=== PATIENT | female | born 1975 | race Caucasian/White ===

== ENCOUNTER 2022-08-20 08:21 | Outpatient (CLI) | payer OTHER, SELFPAY ==
[2022-08-20 10:31] LABS: Albumin* 4.4 g/dL (3.3-5.0); Chloride* 106 mmol/L (96-114)
[2022-08-20 10:32] LABS: Potassium* 4.6 mmol/L (3.6-5.1); Sodium* 142 mmol/L (135-149)
[2022-08-20 10:34] LABS: Alkaline Phosphatase* 61 U/L (40-150); Aspartate Amino Transferase* 24 U/L (12-35); Bilirubin Total* 0.5 mg/dL (0.1-1.5); Blood Urea Nitrogen* 12 mg/dL (5-24); Carbon Dioxide* 29 mmol/L (20-32); Creatinine* 0.9 mg/dL (0.5-1.5); Estimated Glomerular Filt Rate 78 ml/min; Glucose* 108 mg/dL (60-115); Total Protein* 6.8 g/dL (6.0-8.3)
[2022-08-20 10:35] LABS: Alanine Aminotransferase* 30 U/L (4-35); Calcium* 10.3 mg/dL (8.4-10.6); HDL Cholesterol* 53 mg/dL (>=50); Triglycerides* 162 mg/dL (40-149)
[2022-08-21 18:56] LABS: Cholesterol* 231 mg/dL (90-199); LDL Cholesterol Calculated 146 mg/dL (<100)
== END 2022-08-20 08:22 | disposition home or self-care (01) ==
PROVIDERS: PCP Internal Medicine; Visit Provider Internal Medicine
DX: Z13.6 Encounter for screening for cardiovascular disorders (principal); Z13.9 Encounter for screening, unspecified
CPT/HCPCS: 80053; 80061

== ENCOUNTER 2023-09-16 08:27 | Outpatient (CLI) | payer OTHER, SELFPAY | END 2023-09-16 08:28 | disposition home or self-care (01) | PROVIDERS: PCP Internal Medicine; Visit Provider Internal Medicine | DX: R35.0 Frequency of micturition (principal); R53.1 Weakness | CPT/HCPCS: 80053; 84443; 87086; 87186 ==

== ENCOUNTER 2023-10-14 12:37 | Outpatient (CLI) | payer OTHER, SELFPAY ==
[2023-10-14] MEDS: PERFLUTREN LIPID MICROSPHERES 2 ML VIAL IV (13:25)
[2023-10-14 13:32] VITALS: BP 140/64; PULSE 114; RESP 18
--- NOTE | 2023-10-14 14:01 | P.STN_ITS ---
Stress Test Note Date Date Seen: 10/14/23 Date of test: 10/14/23 Providers Primary care provider: Chester Sharp Stress test physician: Sara Diaz Stress Test Note Stress test ordered: Stress Echo Indication for test: Dyspnea on exertion, fatigue Stress test medicine: Definity Results discussion: Resting EKG: Sinus rhythm, 95 beats per minute. Flipped T-waves V1 and V2. Resting blood pressure: 127/81. Stress test: Patient was exercise on the treadmill following standard Juan protocol. Patient requested to stop exercise at 5 minutes 2 seconds due to being significantly short of breath. This was equivalent with 7 Mets. She had a maximum heart rate of 143 beats per minute which was just suboptimal at 98% of her calculated target heart rate of 145. She had a maximum blood pressure of 145/80 with rate pressure product of 20,735. Patient had no arrhythmias, no de finitive ischemic change on this. She had slow return to baseline heart rate. Await echo images to couple this for a full formal diagnostic. Impression: Subjectively positive for dyspnea, poor exercise tolerance, no diagnostic EKG evidence of ischemia, overall suboptimal test potentially due to lack of achieving target heart rate. Follow up suggested: Await echo images, patient should recover it as far as her shortness of breath, had no chest pain. She will await the full test report from her primary provider. Do recommend continuing to work her up for dyspnea/dyspnea on exertion. Full echo could be considered, non exercise stress tests like a Lexiscan if there is still concern significant for cardiac ischemia.
== END 2023-10-14 12:38 | disposition home or self-care (01) ==
LOC: STRESS 12:37
PROVIDERS: PCP Internal Medicine; Visit Provider Family Medicine
DX: R06.09 Other forms of dyspnea (principal); R53.83 Other fatigue
CPT/HCPCS: 93016; 93325; 93351; Q9957

== ENCOUNTER 2023-11-06 08:38 | Outpatient (CLI) | payer OTHER, SELFPAY ==
--- NOTE | 2023-11-06 09:00 | CT_ITS ---
Patient: GARRETT HINOJOSA Facility:?[facility] Patient ID:?[id number] Site Patient ID:?[id number]. Site :?1975 Study:?CT-Chest PE W/ISOVUE 370 95CC-11/06/2023 9:09:19 AM Ordering Physician:YUE Final Report: INDICATION: Shortness of breath COMPARISON: 06/22/2014 TECHNIQUE: CT volumetric acquisition was performed of the thorax during intravenous infusion of 95 cc Isovue 370 nonionic intravenous contrast. Please note that all CT scans at this facility use dose modulation, iterative reconstruction, and/or weight-based dosing when appropriate to reduce radiation dose to as low as reasonably achievable. FINDINGS: The CT images are of acceptable quality and demonstrate normal uniform vascular enhancement within the pulmonary arteries. There are no suspicious filling defects which would indicate pulmonary thromboemboli. There is no evidence of pleural or pericardial fluid. The heart and thoracic aorta appear normal. There is no evidence of lymphadenopathy within the central mediastinum or within either axilla. On lung window settings, there is no evidence of pneumothorax. Dependent areas of atelectasis/scarring noted. IMPRESSION: No evidence of pulmonary thromboembolism. Please note that all CT scans at this facility use dose modulation, iterative reconstruction, and/or weight-based dosing when appropriate to reduce radiation dose to as low as reasonably achievable. Dictated by Anthnoy Lucas MD @ 11/06/2023 11:11:06 AM Signed by:?Anthony Lucas MD @11/06/2023 11:11:06 AM (Electronic Signature)
== END 2023-11-06 08:39 | disposition home or self-care (01) ==
LOC: CT 08:39
PROVIDERS: PCP Internal Medicine; Visit Provider Internal Medicine
DX: R06.02 Shortness of breath (principal)
CPT/HCPCS: 71275; Q9967

== ENCOUNTER 2023-12-04 19:41 | Outpatient (CLI) | payer OTHER, SELFPAY ==
--- OUTSIDE RECORDS SUMMARY | 2023-12-04 19:44 | XMS_ITS | Clinical Summary ---
Author Name Unknown Organization [facility] Address [address] [place] [address] Care Team Providers Care Profiling Machine Setup Operator Name Role Phone Unavailable Primary Care Provider Unavailabl e Source Comments Patient records contain information from all sites at [facility]. For routine questions regarding patient records, call [phone] during business hours, M-F 8:00 AM - 5:00 PM Central Time. Record requests for emergency care only can be directed to [phone] at any time.[facility] Immunizations Name Administration Dates Next Due influenza vaccine quad (FLUZ ONE/FLUARIX) (6 months and older)(PF) 06/12/2023 Social History Tobacco Use Types Packs/Day Years Used Date Smoking Tobacco: Never Assessed Nutrition Answer Date Recorded Nutrition: EVOO Fat Source Unknown 06/12 Nutrition: Servings of Fruits/Vegetables per Day Not on file 06/12/2023 Dental Answer Date Recorded Dental: Regular Dentist Unknown 06/12/20 23 Sex and Gender Information Value Date Recorded Sex Assigned at Not on file Gender Identity Not on file Sexual Orientation Not on file Plan of Treatment Health Maintenance Due Date Last Done Comments CT Colonography 1973 Cologuard 1975 Colonoscopy 1973 Colorectal Cancer Screening 1975 FIT 1973 Fasting Glucose for Diabetes Screening 1975 HIV Screening 1975 Hepatitis C Screening 1975 Lipid (Cholesterol) Screening 1973 Mammogram 1973 Hepatitis B Vaccines (1 of 3 - 19+ 3-dose series) 1992 Cervical Cancer Screening 09/19/2012 09/19/2009, 11/2007 Zoster Vaccines (1 of 2) 2023 COVID-19 Vaccine ( season) 2023 07/21/2021, 11/11/2020, 10/25/2020 Depression Screening (Annual PHQ-2) 08/18/2023 DTaP,Tdap,and Td Vaccines (4 - Td or Tdap) 03/22/2032 03/22/2022, 04/29/2016, 06/26/2009 Influenza Vaccine Completed 06/12/2023, , 07/07/2021, Additional history exists Pneumococcal vaccine (0-64 years) Aged Out No longer eligible based on patient's age to complete this topic Procedures Procedure Name Priority Date/Time Associated Diagnosis Comments PATHOLOGY CASINO DUTY MANAGER CYTOLOGY Routine 09/19/2009 2:22 PM MANAGER CONTRACTING from Last 3 Months or Most Recently Relevant to Health Maintenance Results * Pathology CASINO DUTY MANAGER Cytology (09/19/2009 2:22 PM MANAGER CONTRACTING) 09/19/2009 2:22 PM MANAGER CONTRACTING 09/19/2009 2:22 PM MANAGER CONTRACTING Narrative [facility] [place] - 09/19/2009 2:22 PM MANAGER CONTRACTING ??09/19/2009 Cytology Gynecological ?([id number]) ? Requested By: ??Chhaya aCmpbell M.D. ??[id number] ?DIAGNOSIS: ?? A. ??ThinPrep Pap Test Screen (Cervical/Endocervical HPV >= 30 years old): ?Satisfactory for evaluation. ?Partially obscuring inflammation. ?Negative for intraepithelial lesion or malignancy. ?HPV testing was performed by [employer] Hybrid [employer] and is negative for HPV types 16,18,31,33,35,39,45,51,52,56,58,59 and 68. ?? The HPV assay was performed in the Clinical Virology Laboratory at [facility]. ? Report electronically signed by PAOLA Acuña(ASCP) ?? 09/21/2009 14:41 Interpreted by: DANY Jacob (ASCP) ?? SPECIMEN DESCRIPTION: A. ??ThinPrep Pap Test Screen (Cervical/Endocervical HPV >= 30 years old): ??Received blood tinged specimen in ThinPrep vial. ? Procedure Note 11/12/2017 09/19/2009 Cytology Gynecological ([id number]) Requested By: Chhaya Campbell M.D. [id number] DIAGNOSIS: A. ThinPrep Pap Test Screen (Cervical/Endocervical HPV >= 30 years old): Satisfactory for evaluation. Partially obscuring inflammation. Negative for intraepithelial lesion or malignancy. HPV testing was performed by [employer] and is negative for HPV types 16,18,31,33,35,39,45,51,52,56,58,59 and 68. The HPV assay was performed in the Clinical Virology Laboratory at [facility]. Report electronically signed by PAOLA Acuña(ASCP) 09/21/2009 14:41 Interpreted by: DANY Jacob (ASCP) SPECIMEN DESCRIPTION: A. ThinPrep Pap Test Screen (Cervical/Endocervical HPV >= 30 years old): Received blood tinged specimen in ThinPrep vial. Chhaya Campbell M.D. LAB PAP COPATH ORDER [place] [address] from Last 3 Months or Most Recently Relevant to Health Maintenance [facility] [place] [address]
--- OUTSIDE RECORDS SUMMARY | 2023-12-04 19:44 | XMS_ITS | Encounter Summary ---
Author Name Unknown Organization [facility] Address [address] [place] [id number] Care Team Providers Care Dormitory Keeper Name Role Phone Cami Christopher MD Primary Care Provider [phone] Encounter Details Date Type Department Care Team (Late st Contact Info) Description 01/15/2022 Orders Only [facility] Centralized Scheduling [address] [place] [address] Gabriel Welsh MD [address] [place] [address] Encounter for laboratory testing for COVID-19 virus Social History Tobacco Use Types Packs/Day Years Used Date Smoking Tobacco: Never Alcohol Use Standard Drinks/Week Comments No 0 (1 standard drink = 0.6 oz pur e alcohol) Sex and Gender Information Value Date Recorded Sex Assigned at Not on file Gender Identity Not on file Sexual Orientation Not on file COVID-19 Exposure Response Date Recorded In the last 10 days, have yo u been in contact with someone who was confirmed or suspected to have Coronavirus/COVID-19? No / Unsure 01/15/2022 3:48 PM CDT documented as of this encounter Plan of Treatment Not on file documented as of this encounter Visit Diagnoses Diagnosis Encounter for laboratory testing for COVID-19 virus documented in this encounter Care Teams Dormitory Keeper Relationship Specialty Start Date End Date Cami Christopher MD [facility] [place] [address] [place] [address] PCP - General 11/23/11 documented as of this encounter
--- OUTSIDE RECORDS SUMMARY | 2023-12-04 19:44 | XMS_ITS | Referral Summary ---
Author Name Unknown Organization [facility] Address [address] [place] [address] Care Team Providers Care V Block Saw Operator Name Role Phone Cami Christopher MD Primary Care Provider Allergies Active Allergy Reactions Criticality Noted Date Comments Cephalosporins Hives 04/25/2009 Doxycycline Nausea and Vomiting 10/04/2006 Erythromycin Base Cramps 04/07/2005 Medical Adhesive Remover Rash Low 01/23/2022 Morphine Nausea and Vomiting 04/07/2005 Morphine And Related Hives Low 04/07/2005 Other Drug Allergy (See Comments) Rash Low 01/24/2022 Vicryl sutures Penicillins Rash 04/07/2005 Sulfa Antibiotics Rash 04/07/2005 Tetracycline Nausea and Vomiting 01/19/2022 Trolamine (Triethanolamine) Rash Low 01/19/2022 Medications Medication Sig Dispensed Refills Start Date End Date Status Pregabalin (LYRICA PO) Take 3,330 mg by mouth daily Active ARIPiprazole (ABILIFY) 5 MG tablet Take 5 mg by mouth daily Active lamoTRIgine (LAMICTAL) 100 MG tablet Take 100 mg by mouth daily Active levomilnacipran (FETZIMA ER) 120 MG 24 hr capsule Take 120 mg by mouth daily Active temazepam (RESTORIL) 15 MG capsule Take 15 mg by mouth nightly as needed for sleep Active senna-docusate (SENOKOT-S/PERICOLAC E) 8.6-50 MG tabletIndications:St atus post bilateral breast reduction Take 1-2 tablets by mouth 2 times daily 20 tablet 01/24/2022 Active oxyCODONE (ROXICODONE) 5 MG tabletIndications:St atus post bilateral breast reduction Take 1-2 tablets (5-10 mg) by mouth every 4 hours as needed for moderate to severe pain 20 tablet 01/24/2022 Active Active Problems Problem Noted Date Diagnosed Date Cervicalgia 04/07/2005 Sprain of neck 04/07/2005 Resolved Problems Problem Noted Date Diagnosed Date Resolved Date Knee pain 11/05/2012 05/03/2013 Social History Tobacco Use Types Packs/Day Years Used Date Smoking Tobacco: Never Smokeless Tobacco: Never Alcohol Use Standard Drinks/Week Comments Yes 0 (1 standard drink = 0.6 oz pur e alcohol) rare Adolescent Education Answer Date Record ed Getting School Help Needed Not on file 06/03 Sex and Gender Information Value Date Recorded Sex Assigned at Not on file Gender Identity Not on file Sexual Orientation Not on file Last Filed Vital Signs Vital Sign Reading Time Taken Comments Blood Pressure 108/60 01/24/2022 2:12 PM CDT Pulse 92 01/24/2022 2:12 PM CDT Temperature 36.8 ??C (98.2 ??F) 01/24/2022 2:12 PM CD T Respiratory Rate 12 01/24/2022 2:12 PM CDT Oxygen Saturation 97% 01/24/2022 2:12 PM CDT Inhaled Oxygen Concentration - - Weight 106.5 kg (234 lb 11.2 oz) 01/24/2022 5:47 AM CDT Height 170.2 cm (5' 7) 01/24/2022 5:47 AM CDT Body Mass Index 36.76 01/24/2022 5:47 AM CDT Plan of Treatment Not on file Procedures Procedure Name Priority Date/Time Associated Diagnosis Comments COMPREHENSIVE METABOLIC PANEL STAT 09/10/2010 8:20 PM PRIVATE BRANCH EXCHANGE SERVICE ADVISOR from Last 3 Months or Most Recently Relevant to Health Maintenance Results * (ABNORMAL) Comprehensive metabolic panel (09/10/2010 8:20 PM PRIVATE BRANCH EXCHANGE SERVICE ADVISOR) Sodium 137 133 - 144 mmol/L [facility] Potassium 3.8 3.4 - 5.3 mmol/L [facility] Chloride 102 94 - 109 mmol/L [facility] Carbon Dioxide 25 20 - 32 mmol/L [facility] Glucose 114(H) 60 - 99 mg/dL [facility] Urea Nitrogen 10 5 - 24 mg/dL [facility] Creatinine 0.79 0.52 - 1.04 mg/dL [facility] Comment:New IDMS-traceable c alibration beginning 12/17/07 GFR Estimate 82 >60 mL/min/1.7 m2 [facility] GFR Estimate If Black >90 >60 mL/min/1.7 m2 [facility] Calcium 8.6 8.5 - 10.4 mg/dL [facility] AST 26 0 - 45 U/L [facility] Protein Total 7.3 6.8 - 8.8 g/dL [facility] Anion Gap 9 6 - 17 mmol/L [facility] Albumin 4.6 3.9 - 5.1 g/dL [facility] ALT 38 0 - 50 U/L [facility] Alkaline Phosphatase 50 40 - 150 U/L [facility] Bilirubin Total 0.2 0.2 - 1.3 mg/dL [facility] 09/10/2010 8:20 PM PRIVATE BRANCH EXCHANGE SERVICE ADVISOR 09/10/2010 8:28 PM PRIVATE BRANCH EXCHANGE SERVICE ADVISOR Zara Vargas MD LAB - BLOOD ORDERABL ES MISYS from Last 3 Months or Most Recently Relevant to Health Maintenance Care Teams V Block Saw Operator Relationship Specialty Start Date End Date Cami Christopher MD [facility] [address] [place] [address] PCP - General 11/23/11
--- OUTSIDE RECORDS SUMMARY | 2023-12-04 19:44 | XMS_ITS | Continuity of Care Document ---
Author Name Unknown Organization [facility] Address [address] [place] [address] Phone Care Team Providers Care Legal File Clerk Name Role Phone Nandini Campos MD Unavailable Unavailable Results Test Name Date and Time Measure Units Reference Range Abnormal Flag Status Comments Panel Description: KRISSY Dir+KRISSY IFA Final KRISSY Direct 18:06:00 Negative Negative Final Antinuclear Antibodies, IFA 18:06:00 Negative Final Negative <1:80 Borderline 1:80 Positive >1:80 Panel Description: Rheumatoid Arthritis Profile Final RA Latex Turbid. 18:06:00 10.5 IU/mL 0.0-13.9 Final CCP Antibodies IgG/IgA 18:06:00 3 units 0-19 Final Negative <20 Weak positive 20 - 39 Moderate positive 40 - 59 Strong positive >59 Panel Description: TSH Final TSH 18:06:00 1.340 uIU/mL 0.450-4.500 Final Panel Description: Vitamin D, 25-Hydroxy Final Vitamin D, 25-Hydroxy 18:06:00 31.9 ng/mL 30.0-100.0 Final Vitamin D deficiency has been defined by the Alliance ofMedicine and an Endocrine Society practice guideline as alevel of serum 25-OH vitamin D less than 20 ng/mL (1,2).The Endocrine Society went on to further define vitamin Dinsufficiency as a level between 21 and 29 ng/mL (2).1. IOM (Alliance of Medicine). 2010. Dietary reference intakes for calcium and D. Gutierrez [place]: The National Academies Press.2. Ayden MF, April NC, Yady DESHPANDE, et al. Evaluation, treatment, and prevention of vitamin D deficiency: an Endocrine Society clinical practice guideline. JCEM. 2010; 96(8):2116-30. Panel Description: CBC Final WBC 16:46:00 8.6 K/uL 3.5-10.8 Final Lymphocyte% 16:46:00 34.2 % 15.1-43.0 Final Mid% 16:46:00 8.0 % 1.0-18.0 Final Gran% 012 16:46:00 57.8 % 45.0-76.0 Final Lymphocyte # 012 16:46:00 2.9 K/uL 0.9-5.2 Final Mid # 012 16:46:00 0.7 K/uL 0.1-2.0 Final Gran # 012 16:46:00 5.0 K/uL 1.4-9.1 Final RBC 16:46:00 4.83 M/uL 3.80-5.20 Final Hemoglobin 16:46:00 13.7 g/dL 11.5-16.0 Final Hematocrit 16:46:00 41.9 % 36.0-49.0 Final MCV 16:46:00 87 fL 81-100 Final MCH 16:46:00 28 pg 27-35 Final MCHC 16:46:00 32.7 g/dL 31.0-37.5 Final MPV 16:46:00 9.4 fL 7.0-10.4 Final Platelet Count 16:46:00 316 K/uL 130-400 Final Panel Description: ESR Final ESR 16:55:00 8 mm/hr 0-25 Final Panel Description: DMARD Final AST 16:46:00 17 U/L 5-34 Final ALT 16:46:00 35 IU/L 5-35 Final Creatinine 16:46:00 0.9 mg/dL 0.5-1.3 Final ALB 16:46:00 4.3 g/dL 3.5-5.3 Final GFR 16:46:00 74.5 mL/min/1 .73 m2 Final If patient is -Chilean multiply result by 1.210 Panel Description: CRP Final CRP 16:46:00 0.75 MG/DL 0.00-0.60 H Final Advance Directives Directive Yes / No Effective Date File Name No Information Encounters Encounter Description Practice Location Reason(s) For Visit Diagnoses Date Provider Providers Copied on Encounter [facility], [address], [place], [address], tel:[phone] No Information 2 Andres Delatorre. [facility] [address], [place], [address], [place]. tel:[phone] Family History Family Member Type Diagnosis Age At Onset No Information Payers Payer name Insurance type Covered constitution party ID Authoriza tion(s) No Information Social History Type Description Quantity Date Captured Comments Sex Female Smoking Status No Information Chief Complaint And Reason For Visit No Information Reason For Referral Reason For Referral No Information History Of Present Illness Encounter Date Complaint History Of Prese nt Illness No Information Functional Status Date Functional Assessmen t No Information Instructions Date Instruction Additional Infor mation No Information Assessments Type Assessment Date No Information Patient Care Teams Name Effective Dates (start - stop) Status Members No Information
--- OUTSIDE RECORDS SUMMARY | 2023-12-04 19:44 | XMS_ITS | Clinical Summary ---
Author Name Unknown Organization [facility] Address [place], [place] [address] Care Team Providers Care Leasing Machine Tender Name Role Phone Chester Reyes MD Primary Care Provider Allergies Active Allergy Reactions Criticality Noted Date Comments Cephalosporins Hives 12/21/2008 Yesterday at [facility] - rec'd [facility]. No SOB/respiratory effects Codeine Rash Doxycycline Vomiting 06/15/2007 Erythromycin GI Upset 06/15/2007 Severe stomach cramping Haptens - [employer] Rash 02/21/2023 Penicillins Rash Sulfa (Sulfonamide Antibiotics) Rash Medications Medication Sig Dispensed Refills Start Date End Date Status VITAMIN TAB take 1 tablet by oral route once daily 0 02/23/2008 Active Active Problems Problem Noted Date Diagnosed Date Muscle spasm of back 04/20/2015 Diabetes in 12/23/2008 Rh negative status during 12/22/2008 Cholelithiasis 12/22/2008 RUQ abdominal pain 12/21/2008 Migraine, unspecified, witho ut mention of intractable migraine without mention of status migrainosus 11/04/2006 Endometriosis, site unspecified 11/04/2006 Depressive disorder, not elsewhere classified Myalgia and myositis, unspecified Resolved Problems Problem Noted Date Diagnosed Date Resolved Date Breech presentation 12/22/2008 04/20/20 15 Supervision of normal 12/22/2008 04/20/2015 Encounters Date Type Department Care Team Description 10/14/2023 1:00 PM POWER EQUIPMENT TECHNOLOGY INSTRUCTOR Orders Only [facility] [address] [place] [address] 2 scans: (2-Ord) ECHO STRESS EXERCISE W CONTRAST W COLOR ([id number]) 10/10/2023 Telephone [facility] [address] [place] [address] Chester Reyes MD Prior Authorization from Last 3 Months Immunizations Name Administration Dates Next Due Influenza, IIV3 (Age >=3 years) 06/13/2008,09/02 Td (Age >=7 Years) 04/16/1999 Tdap 03/22/2022 Family History Medical History Relation Name Comments Hyperlipidemia Mother Relation Name Status Comments Mother Social History Tobacco Use Types Packs/Day Years Used Date Smoking Tobacco: Never Smokeless Tobacco: Never Tobacco Cessation:Counseling Given: Yes Alcohol Use Standard Drinks/Week Comments Yes 0 (1 standard drink = 0.6 oz pur e alcohol) quit for Sex and Gender Information Value Date Recorded Sex Assigned at Not on file Gender Identity Not on file Sexual Orientation Not on file Obstetrics History Para Term AB IAB SAB Ectopic Multiple Livin g Live Births 2 Date Outcome GA Total Labor Labor/2nd/3rd Weight Sex Delivery Anes PTL Ksenia A1 A5 Name Cl in Comments:System Agribots matty. Please review and update details. Comments:System Agribots matty. Please review and update details. Last Filed Vital Signs Vital Sign Reading Time Taken Comments Blood Pressure 120/77 02/21/2023 9:49 AM CDT Pulse 95 02/21/2023 9:49 AM CDT Temperature 36.5 ??C (97.7 ??F) 02/21/2023 9:49 AM CD T Respiratory Rate 16 02/21/2023 9:49 AM CDT Oxygen Saturation 95% 02/21/2023 9:49 AM CDT Inhaled Oxygen Concentration - - Weight 119.3 kg (263 lb) 02/21/2023 9:49 AM CDT Height 170.2 cm (5' 7) 03/22/2022 1:40 PM CDT Body Mass Index 41.19 03/22/2022 1:40 PM CDT Plan of Treatment Health Maintenance Due Date Last Done Comments Depression screening for age 12+ 1985 HIV for age 15-65 1988 BMI (ht and wt on same day) for age 18+ 1991 Hepatitis C screening for age 18-79 1991 Pap test for age 21-65 12/21/2016 4, 12/21/2013, 10/02/2010, Additional history exists Colonoscopy through age 75 2018 Lipids for age 45-75 2018 Mammogram for age 45-75 2018 Zoster (shingles) series for age 50+ (1 of 2) 2023 COVID-19 vaccine series ( - 2022-24 season) 2023 07/21/2021, 11/11/2020, 10/25/2020 Influenza for age 50-64 04/18/2024 06/13/2008, 09/02 Tetanus booster 03/22/2032 03/22/2022, 04/16/1999 Tdap Completed 03/22/2022 Pneumococcal series for age 6-64 Aged Out No longer eligible based on patient's age to complete this topic Procedures Procedure Name Priority Date/Time Associated Diagnosis Comments ECHO STRESS EXERCISE W CONTRAST W COLOR Routine 10/14/2023 1:34 PM POWER EQUIPMENT TECHNOLOGY INSTRUCTOR Other fatigue GYNECOLOGICAL PANEL Timed 12/21/2013 8 :48 PM CDT from Last 3 Months or Most Recently Relevant to Health Maintenance Results * ECHO STRESS EXERCISE W CONTRAST W COLOR (10/14/2023 1:34 PM POWER EQUIPMENT TECHNOLOGY INSTRUCTOR) EJECTION FRACTION 55 - 60% Anatomical Region Laterality Modality Ultrasound 10/14/2023 1:02 PM POWER EQUIPMENT TECHNOLOGY INSTRUCTOR Narrative 10/14/2023 2:03 PM POWER EQUIPMENT TECHNOLOGY INSTRUCTOR STRESS ECHOCARDIOGRAM PATRICIA SANCHEZ ?Accession#: ?? [id number] : ?1975 48 years Study Date: ?? 10/14/2023 1:02:57 PM Gender: F ? BP: ? 127/81 mmHg Height: 170.00 cm ? BSA: ?2.32 m? ? ? Weight: 125.00 kg ? Tech: ? MHR ?Referring MD: CHESTER REYES Site: ? [facility] Reading Location: MOBILE OP Patient Location: Outpatient. Procedure: Stress Echo and Color Doppler. Juan stress echo. Indication for study: fatigue Cardiac Rhythm: Regular.Study quality: Technically limited. Imaging limitations: This study was subject to imaging limitations due to body habitus and a prominent lung artifact. Final Impressions: 1. Post stress, normal left ventricular size, normal global systolic function with an estimated EF of 70 to 75%. 2. Submaximum stress test with 83.8% of age predicted maximum heart rate achieved. 3. Technically limited exam. 4. Negative stress echo for ischemia. 5. Fair exercise duration and workload. 6. During stress exam the patient developed shortness of breath. 7. See separate report for EKG interpretation. Stress Data: ? HR ?Systolic Diastolic Time Duration Minutes Seconds Baseline 88 bpm ?127 ?81 mmHg ?5 :2 ?Peak ? 142 bpm ?? 140 ?64 mmHg Max Pred HR ?169 % of Max ? 84% Double Product [id number] Echo Findings:This is a negative stress echo test for ischemia. Post stress, normal left ventricular size, normal global systolic function with an estimated EF of 70 to 75%. LV regional wall motion abnormalities are not present post exercise. EKG:See separate report for EKG interpretation. Exam Protocol:The patient presents with no significant symptoms at baseline. The patient exercised 5 min 2 sec to stage II according to the Juan stress echo protocol. Test terminated due to shortness of breath. 7.0 METS were achieved. The patient achieved a heart rate of 142 bpm which is 83.8% of maximum predicted heart rate. Maximum systolic blood pressure was 140 [place] [id number]. Submaximum stress test with 83.8% of age predicted maximum heart rate achieved. The blood pressure response was flat. Exercise duration and workload were fair. The patient developed shortness of breath during the stress exam. Symptoms resolved with rest. Intermediate (1-3% annual mortality rate) non invasive risk stratification. Chamber Sizes and Function Normal left ventricular size, normal global systolic function with an estimated EF of 55 - 60%. LV regional wall motion abnormalities are not present. MEASUREMENTS AND CALCULATIONS 2-D Measurements and LV Function: Ao Sinus 3.5 cm LVOT diameter 2.5 cm LA ? 3.6 cm HR ?88 bpm . This study was interpreted by an [facility] accredited facility. CC: [facility] (formerly [facility]) [facility]. ??Final ?? Procedure Note Cristobal Bennett MD - 10/14/2023 STRESS ECHOCARDIOGRAM PATRICIA SANCHEZ : 1975 48 years Study Date: 10/14/2023 1:02:57 PM Gender: F BP: 127/81 mmHg Height: 170.00 cm BSA: 2.32 m? ? ? Weight: 125.00 kg Tech: [facility] Referring MD: CHESTER REYES Site: [facility] Reading Location: MOBILE OP Patient Location: Outpatient. Procedure: Stress Echo and Color Doppler. Juan stress echo. Indication for study: fatigue Cardiac Rhythm: Regular.Study quality: Technically limited. Imaging limitations: This study was subject to imaging limitations due tobody habitus and a prominent lung artifact. Final Impressions: 1. Post stress, normal left ventricular size, normal global systolicfunction with an estimated EF of 70 to 75%. 2. Submaximum stress test with 83.8% of age predicted maximum heart rateachieved. 3. Technically limited exam. 4. Negative stress echo for ischemia. 5. Fair exercise duration and workload. 6. During stress exam the patient developed shortness of breath. 7. See separate report for EKG interpretation. Stress Data: HR Systolic Diastolic Time Duration Minutes Seconds Baseline 88 bpm 127 81 mmHg 5 :2 Peak 142 bpm 140 64 mmHg Max Pred HR 169 % of Max 84% Double Product [id number] Echo Findings:This is a negative stress echo test for ischemia. Poststress, normal left ventricular size, normal global systolic function withan estimated EF of 70 to 75%. LV regional wall motion abnormalities arenot present post exercise. EKG:See separate report for EKG interpretation. Exam Protocol:The patient presents with no significant symptoms atbaseline. The patient exercised 5 min 2 sec to stage II according to [facility] stress echo protocol. Test terminated due to shortness of breath.7.0 METS were achieved. The patient achieved a heart rate of 142 bpm whichis 83.8% of maximum predicted heart rate. Maximum systolic blood pressurewas 140 [place] [address]. Submaximum stress testwith 83.8% of age predicted maximum heart rate achieved. The bloodpressure response was flat. Exercise duration and workload were fair. Thepatient developed shortness of breath during the stress exam. Symptomsresolved with rest. Intermediate (1-3% annual mortality rate) non invasive risk stratification. Chamber Sizes and Function Normal left ventricular size, normal global systolic function with anestimated EF of 55 - 60%. LV regional wall motion abnormalities are notpresent. MEASUREMENTS AND CALCULATIONS 2-D Measurements and LV Function: Ao Sinus 3.5 cm LVOT diameter 2.5 cm LA 3.6 cm HR 88 bpm . This study was interpreted by an [facility] accredited facility. CC: [facility] (med records) [facility]. Final Chester Reyes MD ECHO ORD * GYNECOLOGICAL PANEL (12/21/2013 8:48 PM CDT) CYTOLOGY CYTOPATHOLOGY REPORT [facility] Status: Final Status ?[id number] CLINICAL INFORMATION Last Date of LMP ? :12/17/13 Last Pap Date ?:2010 Last Pap Result ?:WNL ABN [place]/Bx Past 5 YRS :None HPV Request ?:HPV and PAP. See Separate Report. SPECIMEN SOURCE ?:Cervical/vagina l ThinPrep Vial, screening SPECIMEN ADEQUACY ?:Satisfactory for evaluation Endocervical component ? present. INTERPRETATION/RES ULT Negative for intraepithelial lesion or malignancy (NIL) Cytology 1st Screener ??:bhargavi Signed by ?:bhargavi This specimen was screened by the FDA approved ThinPrep Imaging System and manually reviewed. NOTE: ??The Pap test is a screening technique, not a diagnostic procedure. ??It is used ??primarily to screen for squamous cancers and precursor lesions. ??Published studies have shown that it is subject to both false negative and false positive results. ??The pap test should not be used as the sole means to diagnose or exclude pre-malignant and malignant lesions. COLLECTED:12/21/13 ? ACCESSIONED: ??12/22/13 ?? SIGNED: ??12/27/13 [facility] PAP [place] CODE NIL [facility] 12/21/2013 8:48 PM CDT 12/21/2013 8:47 PM CDT Cami Christopher MD PATHOLOGY/CYTOLOGY [facility] [place] ZIP [id number] [address] [place] [address] from Last 3 Months or Most Recently Relevant to Health Maintenance Advance Directives * Full Code (Latest Code Status on File) Date Activated Date Inactivated Comments 12/21/2008 8:35 PM 12/25/2008 4:48 PM Care Teams Leasing Machine Tender Relationship Specialty Start Date End Date Chester Reyes MD [address] [place] [id number] PCP - General Internal Medicine 11/13/23
--- OUTSIDE RECORDS SUMMARY | 2023-12-04 19:44 | XMS_ITS | Referral Summary ---
Author Name Unknown Organization [facility] Address [address] [place] [address] Care Team Providers Care Secondary School Teacher Name Role Phone Unavailable Primary Care Provider Unavailabl e Source Comments Patient records contain information from all sites at [facility]. For routine questions regarding patient records, call [phone] during business hours, M-F 8:00 AM - 5:00 PM Central Time. Record requests for emergency care only can be directed to [phone] at any time.[facility] Immunizations Name Administration Dates Next Due influenza [...] Orientation Not on file Plan of Treatment Not on file Procedures Procedure Name Priority Date/Time Associated Diagnosis Comments PATHOLOGY FORGE HEATER CYTOLOGY Routine 09/19/2009 2:22 PM CLINICAL ATHLETIC INSTRUCTOR from Last 3 Months or Most Recently Relevant to Health Maintenance Results * Pathology FORGE HEATER Cytology (09/19/2009 2:22 PM CLINICAL ATHLETIC INSTRUCTOR) 09/19/2009 2:22 PM CLINICAL ATHLETIC INSTRUCTOR 09/19/2009 2:22 PM CLINICAL ATHLETIC INSTRUCTOR Narrative [facility] - 09/19/2009 2:22 PM CLINICAL ATHLETIC INSTRUCTOR ??09/19/2009 Cytology Gynecological ?([id number]) ? Requested By: ??Chhaya Campbell M.D. ??[id number] ?DIAGNOSIS: ?? A. ??ThinPrep Pap Test Screen (Cervical/Endocervical HPV >= 30 years old): ?Satisfactory for evaluation. ?Partially obscuring inflammation. ?Negative for intraepithelial lesion or malignancy. ?HPV testing was performed by Digene Hybrid Capture II and is negative for HPV types 16,18,31,33,35,39,45,51,52,56,58,59 and 68. ?? The HPV assay was performed in the Clinical Virology Laboratory at [facility]. ? Report electronically signed by PAOLA Acuña(ASCP) ?? 09/21/2009 14:41 Interpreted by: DANY Jacob (ASCP) ?? SPECIMEN DESCRIPTION: A. ??ThinPrep Pap Test Screen (Cervical/Endocervical HPV >= 30 years old): ??Received blood tinged specimen in ThinPrep vial. ? Procedure Note 11/12/2017 09/19/2009 Cytology Gynecological ([id number]) Requested By: Chhaya Campbell M.D. [id number] DIAGNOSIS: A. ThinPrep Pap Test Screen (Cervical/Endocervical HPV >= 30 years old): Satisfactory for evaluation. Partially obscuring inflammation. Negative for intraepithelial lesion or malignancy. HPV testing was performed by Digene Hybrid Capture II and is negative for HPV types 16,18,31,33,35,39,45,51,52,56,58,59 and 68. The HPV assay was performed in the Clinical Virology Laboratory at [facility]. Report electronically signed by PAOLA Acuña(ASCP) 09/21/2009 14:41 Interpreted by: DANY Jacob (ASC) SPECIMEN DESCRIPTION: A. ThinPrep Pap Test Screen (Cervical/Endocervical HPV >= 30 years old): Received blood tinged specimen in ThinPrep vial. Chhaya Campbell M.D. LAB PAP COPATH ORDER [facility] [address] [place] [address], [facility] from Last 3 Months or Most Recently Relevant to Health Maintenance
--- OUTSIDE RECORDS SUMMARY | 2023-12-04 19:44 | XMS_ITS | Clinical Summary ---
Author Name Unknown Organization [facility] Address [address] [place] [address] Care Team Providers Care Apartment Rental Agent Name Role Phone Cami Christopher MD Primary [...] 01/24/2022 5:47 AM CDT Plan of Treatment Health Maintenance Due Date Last Done Comments ADVANCE CARE PLANNING 1975 ANNUAL REVIEW OF HM ORDERS 1975 CT COLONOGRAPHY 1975 FIT 1975 FLEX SIG 1975 MAMMO SCREENING 1975 YEARLY PREVENTIVE VISIT 1975 sDNA (Cologuard) 1975 COLONOSCOPY 1983 COLORECTAL CANCER SCREENING 1983 HIV SCREENING 1988 HEPATITIS C SCREENING 1991 HEPATITIS B IMMUNIZATION (1 of 3 - 19+ 3-dose series) 1992 PAP 1994 LIPID 2013 GLUCOSE 09/10/2013 09/10/2010, 08/2 11/2008, 11/15/2007, Additional history exists ZOSTER IMMUNIZATION (1 of 2) 2023 COVID-19 Vaccine (4 - 2022-24 season) 2023 07/21/2021, 11/11/2020, 10/25/2020 INFLUENZA VACCINE (#1) 2023 , 06/22/2020, 06/30/2019, Additional history exists PHQ-2 (once per calendar year) 2023 DTAP/TDAP/TD IMMUNIZATION (4 - Td or Tdap) 04/29/2026 04/29/2016, 06/26/2009, 06/26/2009, Additional history exists HPV IMMUNIZATION Aged Out No longer e ligible based on patient's age to complete this topic IPV IMMUNIZATION Aged Out No longer e ligible based on patient's age to complete this topic MENINGITIS IMMUNIZATION Aged Out No l onger eligible based on patient's age to complete this topic Pneumococcal Vaccine: Pediatrics (0 to 5 Years) and At-Risk Patients (6 to 64 Years) Aged Out No longer eligible based on patient's age to complete this topic RSV MONOCLONAL ANTIBODY Aged Out No l onger eligible based on patient's age to complete this topic Procedures Procedure Name Priority Date/Time Associated Diagnosis Comments COMPREHENSIVE METABOLIC PANEL STAT 09/10/2010 8:20 PM NEWS INTERNSHIP from Last 3 Months or Most Recently Relevant to Health Maintenance Results * (ABNORMAL) Comprehensive metabolic panel (09/10/2010 8:20 PM [employer]) Sodium 137 133 - 144 mmol/L MISYS [...] - 1.3 mg/dL MISYS 09/10/2010 8:20 PM [employer] 09/10/2010 8:28 PM [employer] Zara Vargas MD LAB - BLOOD ORDERABL ES MISYS from Last 3 Months or Most Recently Relevant to Health Maintenance Care Teams Apartment Rental Agent Relationship Specialty Start Date End Date Cami Christopher MD [facility] [address] [place] [address] PCP - General 11/23/11
--- OUTSIDE RECORDS SUMMARY | 2023-12-04 19:44 | XMS_ITS ---
Author Name Unknown Organization [facility] Address [address] [place] [address] Care Team Providers Care Marble And Granite Polisher Name Role Phone Unavailable Unavailable Unavailable Surgery Details Not on file Complications Check Surgery Details section. Procedure Estimated Blood Loss Check Surgery Details section. Procedure Findings Check Surgery Details section. Procedure Specimens Taken Check Surgery Details section.
--- OUTSIDE RECORDS SUMMARY | 2023-12-04 19:44 | XMS_ITS | Continuity of Care Document ---
Author Name Unknown Organization [facility] Address [address] [address] [place] [address] Phone Care Team Providers Care Budget Officer Name Role Phone Hope GODWIN, Shanon Unavailable Unavailable Allergies, Adverse Reactions, Alerts Substance Reaction Status Criticality doxycycline Nausea/vomiting Active No Informati on codeine Rash Active No Information morphine Vomiting Active No Information trolamine salicylate Rash Active No Info rmation adhesive Rash Active No Information tetracycline Vomiting Active No Information Cephalosporins Rash Active No Informatio n erythromycin base Abdominal cramping Active No I nformation Sulfa (Sulfonamide Antibiotics) Rash Active No Information PENICILLIN Rash Active No Information Medications Medication Instructions Dosage Effective Dates (start - stop) Status Comments dicyclomine 10 mg capsule take 1 capsule by oral route 4 times every day as needed 10 MG - Active ZOFRAN (unknown strength) take 1 Tablet by oral route every6- 8 hours as needed Not Available - Active Fetzima 120 mg capsule,extended release take 1 capsule by oral route every day at approximately the same time each day 120 MG - Active Procedures Procedure Date Virtual Visit E&m Estab Mod-hi 25-39 Min FibroScan Offic/outpt E&m Estab Mod-hi 2 Routine Serum Collection Ag-immunoassay; Hep B Surface 0 Hepatitis B Surface Antibody Hep B Core Antibody Hepatitis C Antibody; Iron Iron Binding Capacity Colonoscopy Flex; W/bx 1/mx Level Iv-surg Path Gross/micro 20 Offic/outpt E&m Estab Mod-hi 2 20 Routine Serum Collection Gg; Iga, Igd, Igg, Igm, Ea Hepatic Function Panel Lipase Ugi Endo; Dx W/wo Collec Specm 09 Init Inpt Cons New/est Mod-hi 9 Advance Directives Directive Yes / No Effective Date File Name No Information Encounters Encounter Description Practice Location Reason(s) For Visit Diagnoses Date Provider Providers Copied on Encounter Virtual Visit E&m Estab Mod-hi 25-39 Min [facility], [address] [address], [place], [place], [id number], [place] tel:[phone] [facility] GI Symptoms or Concerns (chief complaint) NAFLD (nonalcoholic fatty liver disease) 0 Hope GODWIN [facility]. [address] [facility], [facility] [address], [place], [place], [address] , [place]. tel:[phone] Referring Provider: Referral Self, USE FOR SELF REFERRALS. [facility], [address] [address], [facility] [place], [address], [place] tel:[phone] [facility] Fatty (change of) liver, not elsewhere classified 0 Keith Hamlin. [address] [facility], [address], [place], [place], [address] , [place]. tel:[phone] Referring Provider: Referral Self, USE FOR SELF REFERRALS. Offic/outpt E&m Estab Mod-hi 2 [facility], [address] [address], [place], [address], [place] tel:[phone] [facility] Comment (chief complaint) Epigastric painNauseaFatty liverAbnormal LFTsDietary counseling and surveillanceElev ated blood-pressure reading, w/o diagnosis of htn 0 Keith Hamlin. [address] [facility], [facility] [address], [facility] [place], [address] , [place]. [phone] Referring Provider: Blane FERNANDEZ, [address] [place], [address]. tel:[phone] [facility], [address] [address], [place], [address], [place] tel:[phone] [facility] Hemorrhoids, externalDiarrhea , unspecifiedUnspe cified abdominal painDiarrhea, unspecifiedUnspe cified abdominal pain 0 Keith Hamlin. [address] [facility], [facility] [address], [place], [address] , [place]. tel:[phone] Referring Provider: Referral Self, USE FOR SELF REFERRALS. [facility], [address] [address], [place], [address], [place] tel:[phone] [facility] No Information 0 Lin Harvey. [address] [facility], [facility] [address], [facility] [place], [address] , [place]. tel:[phone] Offic/outpt E&m Estab Mod-hi 2 [facility], [address] [address], [place], [address], [place] tel:[phone] [facility] GI Symptoms or Concerns (chief complaint) Nausea and vomiting, intractability of vomiting not specified, unspecified vomiting typeChronic diarrheaBright red blood per rectumEpigastric pain 0 Keith Hamlin. [address] [facility], [facility] [address], [facility] [place], [address] , [place]. [phone] Referring Provider: Beau Pereyra MD, [address] [facility] [place], [address]. tel:[phone] [facility], [address] [address], [place], [address], [place] tel:[phone] [facility] No Information 8[address] Manoj Cruz. [address] [facility], [facility] [address], [place], [address] , [place]. tel:[phone] Referring Provider: Anthony Aranda MD I, [address] [facility] [address], [place], [address] . tel:[phone] Init Inpt Cons New/est Mod-hi [facility], [address] [address], [place], [id number], [place] tel:[phone] [facility] No Information [address] ADMITTING INTERVIEWER Nohemy. [address] [facility], [facility] [address], [place], [address] , [place]. [phone] Referring Provider: Augusto Gates MD, [address] [place], [address]. tel:[phone] Family History Family Member Type Diagnosis Age At Onset Father Problem (finding) gallbladder disease Son Problem (finding) Alive and well Brother Problem (finding) Non-Hodgkin's lymphoma Mother Problem (finding) Alive and well Brother Problem (finding) Alive and well Immunizations Vaccine Date Status Comments Fluzone Quad 6mo or older administered Note: [facility] bi-direct ional interface ; Source: Other Registry Fluzone Quad 6mo or older administered Note: [facility] bi-direct ional interface ; Source: Other Registry Fluzone Quad 6mo or older administered Note: [facility] bi-direct ional interface ; Source: Other Registry Fluzone Quad 6mo or older administered Note: [facility] bi-direct ional interface ; Source: Other Registry tetanus toxoid, reduced diphtheria toxoid, and acellular pertussis vaccine, adsorbed administered Note: [facility] b i-directional interface ; Source: Other Registry Influenza, seasonal, injecta ble, preservative free administered Note: [facility] bi-direct ional interface ; Source: Other Registry influenza virus vaccine, lux e, attenuated, for intranasal use administered Note: M[facility] C bi- directional interface ; Source: Other Registry influenza virus vaccine, lux e, attenuated, for intranasal use administered Note: MII C bi- directional interface ; Source: Other Registry Influenza, seasonal, injecta ble, preservative free administered Note: [facility] bi-direct ional interface ; Source: Other Registry Influenza, seasonal, injectable administe red Note: [facility] bi- directional interface ; Source: Other Registry tetanus toxoid, reduced diphtheria toxoid, and acellular pertussis vaccine, adsorbed administered Note: [facility] b i-directional interface ; Source: Other Registry Novel [id number], injectable administered Note: [facility] bi-direct ional interface ; Source: Other Registry Influenza, seasonal, injectable administe red Note: [facility] bi- directional interface ; Source: Other Registry Payers Payer name Insurance type Covered republican ID Authoriza quin(s) Ishan [id number] Social History Type Description Quantity Date Captured Comments Alcohol Use Details Unknown Caffeine Use Details Unknown Tobacco Use Status No Information Smoking Status No Information Sex Female Chief Complaint And Reason For Visit From encounter dated '01/06/2020 13:00'. GI Symptoms or Concerns (chief complaint). Description: The patient is a 44-year-old woman. She consents for telephone consultation of abnormal LFTs. Consult was requested by Dr Parker. Patient's medical history is significant for fibromyalgia, depression, history of multiple previous abdominal surgeries. She was recently seen by Dr Parker in followup for epigastric abdominal pain with previous complaints of nausea, diarrhea, and rectal bleeding.Evaluation has been largely unremarkable apart from abnormal LFTs: AST of 62, ALT 190, otherwise normal LFTs. Ultrasound was consistent with fatty liver. CT on August 20 was unremarkable. The patient reports rare alcohol, perhaps a couple ofdrinks per month. She says her weight is overall stable. Her BMI is 36. No known history of diabetes, hypertension or hyperlipidemia. No family history of chronic liver disease. Patient underwent complete serology work-up of liver disease including HCV/HBV/KRISSY/SMA/AMA/Celiac serology/Ferritin/A1AT/Ceruloplasmin - ALL negative. Her PLT count is within normal limits at 337,000. FibroScan revealed liver stiffness within normal limits at 5.2 kPa. Patient had an EGD for evaluation of GI symptoms. EGD revealed no endoscopic evidence of portal hypertension. Reason For Referral Reason For Referral No Information Plan Of Treatment Date Type Action Status Goal Lifestyle education regardin g diet completed Referral Ordered: follow-up visit with Shanon Arnett MD 3 Months Appointment date/timeframe: 3 Months ordered Referral Ordered: CBC Appointment date/timeframe: 04/07/2020 ordered Referral Ordered: Hepatic Function Panel Appointment date/timeframe: 04/07/2020 ordered Referral Ordered: Gastric Emptying Study (4 Hours) Appointment date/timeframe: 09/07/2019 ordered Referral Ordered: Ultrasound Abdomen Appointment date/timeframe: 09/07/2019 ordered Referral Ordered: Colonoscopy Appointment date/timeframe: 09/21/2019 ordered Future Order: Lab Order Antimito chondrial Ab (AMA), Qn ([id number]), Body Site: Right Antecubital Fossa, Ordered on: Ordered History Of Present Illness Encounter Date Complaint History Of Prese nt Illness GI Symptoms or Concerns The addi ent is a 44-year-old woman. She consents for telephone consultation of abnormal LFTs. Consult was requested by Dr Parker. Patient's medical history is significant for fibromyalgia, depression, history of multiple previous abdominal surgeries. She was recently seen by Dr Parker in followup for epigastric abdominal pain with previous complaints of nausea, diarrhea, and rectal bleeding.Evaluation has been largely unremarkable apart from abnormal LFTs: AST of 62, ALT 190, otherwise normal LFTs. Ultrasound was consistent with fatty liver. CT on August 20 was unremarkable. The patient reports rare alcohol, perhaps a couple of drinks per month. She says her weight is overall stable. Her BMI is 36. No known history of diabetes, hypertension or hyperlipidemia. No family history of chronic liver disease. Patient underwent complete serology work-up of liver disease including HCV/HBV/KRISSY/SMA/AMA/Celiac serology/Ferritin/A1AT/Ceruloplasmin - ALL negative. Her PLT count is within normal limits at 337,000. FibroScan revealed liver stiffness within normal limits at 5.2 kPa. Patient had an EGD for evaluation of GI symptoms. EGD revealed no endoscopic evidence of portal hypertension. Comment The patient is a 44-year-old female with past medical history significant for fibromyalgia, depression, history of multiple previous abdominal surgeries, seen in followup for epigastric abdominal pain with previous complaints of nausea, diarrhea, and rectal bleeding.She was initially seen in August with complaints of nausea, vomiting, chronic diarrhea, rectal bleeding and mid epigastric pain. Recommendation was for further evaluation. She had laboratory testing. She is status post evaluation with an upper endoscopy, colonoscopy, gastric emptying test, ultrasound and CT. Evaluation has been largely unremarkable apart from abnormal LFTs and ultrasound consistent with fatty liver, specifically upper endoscopy revealed a small hiatal hernia and was otherwise normal with normal duodenal biopsies, normal gastric biopsies, and esophageal biopsies consistent with reflux. CT on August 20 was unremarkable. Gastric emptying test on September 08 was normal. Colonoscopy on September GI Symptoms or Concerns The addi ent is a 44-year-old female with past medical history significant for fibromyalgia and depression as well as multiple abdominal surgeries including previous appendectomy, cholecystectomy, hernia repair, laparoscopy x8, hysterectomy, , and hemorrhoidectomy. She is seen for evaluation of nausea, vomiting, chronic diarrhea, rectal bleeding, and mid epigastric pain.She reports symptoms of nausea since mid June. More recently, this has also been associated with vomiting. She was previously using daily nonsteroidals, which she discontinued. She underwent evaluation with an upper endoscopy at [facility] on August 05. This revealed a small hiatal hernia and was otherwise normal. Biopsies of the duodenum were normal. Gastric biopsies were normal and negative for H. pylori. Esophageal biopsies revealed active inflammation consistent with reflux and were otherwise unremarkable without evidence of eosinophilic esophagitis. She has been on a daily omepr Functional Status Date Functional Assessmen t No Information Instructions Date Instruction Additional Infor elier 1. abnormal lft eval 2. fibroscan3. gradual weight loss, avoid/limit sugars/carbohydrates4.trial dicyclomine up to 4 times per day as needed for abdominal pain5. f/u with pcp/mental health provider for continued treatment depression/anxiety which could be playing role6. f/u in liver clinic7. could consider [facility] for pain if dicyclomine does not help Related to Abnormal LFTs Lifestyle education regarding di et Related to Dietary counseling and surveillance 1. check lft, tsh, c eliac, lipase2. ruq u/s3. stool infection panel4. colonoscopy with ti eval and random biopsies5. request labs, ct from [place]6. f/u in 6 weeks Related to Epigastric pain Assessments Type Assessment Date assessment NAFLD (nonalcoholic fatty liver disease) impression Abnormal ALT and AST x2-4 ULN. No prior LFTs to compare with, but suspect chronicity. No excessive alcohol use. Complete serology work-up of liver disease is negative. Suspect patient has NAFLD in the context of obesity. It is unlikely patient has advanced hepatic fibrosis following the NAFLD fibrosis score and FibroScan. I note, however, that ALT is somewhat beyond what to expect in patients with NAFLD. We discussed today the natural history of NAFLD, risk of progression into liver cirrhosis and risk of malignancy. Recommend low carbohydrate diet with a goal of 5-10% weight loss over the next 6 months. Re-check LFTs in three months. Liver biopsy can be considered if ALT remains significantly abnormal. Discussed with the patient. She understands and agrees to proceed. Greater than 30 minutes spent in a combination of the following activities: reviewing records; interpreting test results; discussing and coordinating care with other team members; discussing plans with the patient and/or family on the telephone; reviewing care plan with local provider(s) on the telephone Patient Care Teams Name Effective Dates (start - stop) Status Members No Information
--- NOTE | 2023-12-23 12:48 | W.PM.SLEEP ---
Sleep Study Details Details Interpreting Provider: Rene Date of Sleep Study: 12/04/23 Sleep Study Details: STUDY TYPE:? Home unattended ? BMI:? 44.4 ORDERING PROVIDER:? Rene INDICATION:? Concerns about sleep apnea ? SLEEP SUMMARY:? 444 minutes monitored RESPIRATORY SUMMARY:? AHI 35.9, low saturation 75, 20.7% of study oxygen less than 90% Snoring 90% PERIODIC LIMB MOVEMENTS OF SLEEP:? Not recorded CARDIAC:? Range 59-110, mean 83.9 IMPRESSION:? Severe obstructive sleep apnea with significant desaturations RECOMMENDATION: Weight loss is recommended. Treatment for CPAP would include AutoSet CPAP pressure 4-17 weight loss and possibly airway expansion surgery.
== END 2023-12-04 19:42 | disposition home or self-care (01) ==
LOC: SLEEP 19:43
PROVIDERS: PCP Internal Medicine; Visit Provider Otolaryngology
DX: G47.33 Obstructive sleep apnea (adult) (pediatric) (principal)
CPT/HCPCS: 95806

== ENCOUNTER 2023-12-30 10:38 | Outpatient (CLI) | payer OTHER, SELFPAY ==
--- OUTSIDE RECORDS SUMMARY | 2024-01-01 07:41 | XMS_ITS | Encounter Summary ---
Author Name Unknown Organization [facility] Address [address] [place] [address] Care Team Providers Care President Sales And Marketing Name Role Phone Cami Christopher MD Primary Care Provider Encounter Details Date Type Department Care Team (Late st Contact Info) Description 01/15/2022 Orders Only [facility] Centralized Scheduling [address] [place] [address] Gabriel Welsh MD [address] [place] [address] Encounter for laboratory testing for COVID-19 virus [...] virus documented in this encounter Care Teams President Sales And Marketing Relationship Specialty Start Date End Date Cami Christopher MD [facility] [address] [place] [address] PCP - General 11/23/11 documented as of this encounter
--- OUTSIDE RECORDS SUMMARY | 2024-01-01 07:41 | XMS_ITS | Continuity of Care Document ---
Author Name Unknown Organization [facility] Address [address] [address] [place] [address] Phone Care Team Providers Care Phototypesetter Operator Name Role Phone Hope GODWIN, Shanon Unavailable [...] Virtual Visit E&m Estab Mod-hi 25-39 Min [facility], [address] [address], [place], [place], [address], [place] tel:[phone] [facility] GI Symptoms or Concerns (chief complaint) NAFLD (nonalcoholic fatty liver disease) 0 Hope GODWIN [facility]. [address] [facility], [facility] [address], [place], [place], [address] , [place]. tel:[phone] Referring Provider: Referral Self, USE FOR SELF REFERRALS. [facility], [address] [address], [facility] [place], [address], [place] tel:[phone] [facility] Fatty (change of) liver, not elsewhere classified 0 Keith Hamlin. [address] [facility], [address], [place], [place], [address] , [place]. tel:[phone] Referring Provider: Referral Self, USE FOR SELF REFERRALS. Offic/outpt E&m Estab Mod-hi 2 [facility], [address] [address], [place], [address], [place] tel:[phone] [facility] Comment (chief complaint) Epigastric painNauseaFatty liverAbnormal LFTsDietary counseling and surveillanceElev ated blood-pressure reading, w/o diagnosis of htn 0 Keith Hamlin. [address] [facility], [facility] [address], [facility] [place], [address] , [place]. [phone] Referring Provider: Blane FERNANDEZ, [address] [place], [address]. tel:[phone] [facility], [address] [address], [place], [id number], [place] tel:[phone] [facility] Hemorrhoids, externalDiarrhea , unspecifiedUnspe cified abdominal painDiarrhea, unspecifiedUnspe cified abdominal pain 0 Keith Hamlin. [address] [facility], [facility] [address], [place], [address] , [place]. [phone] Referring Provider: Referral Self, USE FOR SELF REFERRALS. [facility], [address] [address], [place], [address], [place] tel:[phone] [facility] No Information 0 Lin Harvey. [address] [facility], [facility] [address], [facility] [place], [address] , [place]. [phone] Offic/outpt E&m Estab Mod-hi 2 [facility], [address] [address], [place], [address], [place] tel:[phone] [facility] GI Symptoms or Concerns (chief complaint) Nausea and vomiting, intractability of vomiting not specified, unspecified vomiting typeChronic diarrheaBright red blood per rectumEpigastric pain 0 Keith Hamlin. [address] [facility], [facility] [address], [facility] [place], [address] , [place]. [phone] Referring Provider: Beau Pereyra MD, [address] [facility] [place], [address]. tel:[phone] [facility], [address] [address], [place], [address], [place] tel:[phone] [facility] No Information 8[address] 9 Manoj Cruz. [address] [facility], [facility] [address], [place], [address] , [place]. tel:[phone] Referring Provider: Anthony Aranda MD I, [address] [facility] [address], [place], [address] . tel:[phone] Init Inpt Cons New/est Mod-hi [facility], [address] [address], [place], [address], [place] tel:[phone] [facility] No Information [address] GRAD RN Nohemy. [address] [facility], [facility] [address], [place], [address] , [place]. tel:[phone] Referring Provider: Augusto Gates MD, [address] [place], [address]. tel:[phone] Family History Family Member Type Diagnosis Age [...] i-directional interface ; Source: Other Registry Novel [id number], injectable administered Note: [facility] bi-direct ional interface ; Source: Other Registry Influenza, seasonal, injectable administe red Note: [facility] bi- directional interface ; Source: Other Registry Payers Payer name Insurance type Covered republican ID Authoriza quin(s) Ishan [id number] Social History Type Description Quantity Date Captured [...] Lab Order Antimito chondrial Ab (AMA), Qn ([id number]), Body Site: Right Antecubital Fossa, Ordered on: [...] underwent evaluation with an upper endoscopy at [facility] on August 05. This revealed a small [...] role6. f/u in liver clinic7. could consider [facility] for pain if dicyclomine does not help Related to Abnormal LFTs Lifestyle education regarding di et Related to Dietary counseling and surveillance 1. check lft, tsh, c eliac, lipase2. ruq u/s3. stool infection panel4. colonoscopy with ti eval and random biopsies5. request labs, ct from [place]6. f/u in 6 weeks Related to Epigastric [...]
--- OUTSIDE RECORDS SUMMARY | 2024-01-01 07:41 | XMS_ITS | Continuity of Care Document ---
Author Name Unknown Organization [facility] Address [address] [facility] [address] [facility] [address] [place] [address] Phone Care Team Providers Care Transplanter Name Role Phone Nandini Capmos MD Unavailable Unavailable Results Test Name Date [...] D deficiency has been defined by the [place] of[place] and an Endocrine Society practice guideline as alevel of serum 25-OH vitamin D less than 20 ng/mL (1,2).The Endocrine Society went on to further define vitamin Dinsufficiency as a level between 21 and 29 ng/mL (2).1. IOM ([place] [employer]). 2010. Dietary reference intakes for calcium and D. Gutierrez [place]: The National Academies Press.2. Ayden MF, April NC, Yady DESHPANDE, et al. Evaluation, treatment, and prevention of vitamin D deficiency: an Endocrine Society clinical practice guideline. JCEM. 2010; 96(0):6267-30. Panel Description: CBC Final WBC 16:46:00 8.6 [...] mL/min/1 .73 m2 Final If patient is -Albanian multiply result by 1.210 Panel Description: CRP Final CRP 16:46:00 0.75 MG/DL 0.00-0.60 H Final Advance Directives Directive Yes / No Effective Date File Name No Information Encounters Encounter Description Practice Location Reason(s) For Visit Diagnoses Date Provider Providers Copied on Encounter [facility], [address], [place], [address], tel:[phone] No Information 2 Andres Delatorre. [facility] [address], [place], [address], [place]. tel:[phone] Family History Family Member Type Diagnosis Age At Onset No Information Payers Payer name Insurance type Covered democrat ID Authoriza tion(s) No Information Social History [...]
--- OUTSIDE RECORDS SUMMARY | 2024-01-01 07:41 | XMS_ITS | Clinical Summary ---
Author Name Unknown Organization [facility] Address [address] [place] [address] Care Team Providers Care Hydroelectric Station Operator Name Role Phone Cami Christopher MD Primary Care Provider Allergies Active Allergy Reactions Criticality Noted Date Comments Cephalosporins Hives 04/25/2009 Doxycycline Nausea and Vomiting 10/04/2006 Erythromycin Base Cramps 04/07/2005 Medical Adhesive Remover Rash Low 01/23/2022 Morphine Nausea and Vomiting 04/07/2005 Morphine And Codeine Hives Low 04/07/2005 Other Drug Allergy (See [...] - 2022-24 season) 2023 07/21/2021, 11/11/2020, 10/25/2020 PHQ-2 (once per calendar year) 2023 INFLUENZA VACCINE (Season Ended) 2024 07/07/2021, 06/22/2020, 06/30/2019, Additional history exists DTAP/TDAP/TD IMMUNIZATION (4 - Td or Tdap) [...] COMPREHENSIVE METABOLIC PANEL STAT 09/10/2010 8:20 PM ASSISTANT COUNSEL from Last 3 Months or Most Recently Relevant to Health Maintenance Results * (ABNORMAL) Comprehensive metabolic panel (09/10/2010 8:20 PM ASSISTANT COUNSEL) Sodium 137 133 - 144 mmol/L MISYS [...] - 1.3 mg/dL MISYS 09/10/2010 8:20 PM ASSISTANT COUNSEL 09/10/2010 8:28 PM ASSISTANT COUNSEL Zara Vargas MD LAB - BLOOD ORDERABL ES MISYS from Last 3 Months or Most Recently Relevant to Health Maintenance Care Teams Hydroelectric Station Operator Relationship Specialty Start Date End Date Cami Christopher MD [facility] [address] [place] [address] PCP - General 11/23/11
--- OUTSIDE RECORDS SUMMARY | 2024-01-01 07:41 | XMS_ITS ---
Author Name Unknown Organization [facility] Address [address] [place] [address] Care Team Providers Care Clock And Watch Hands Painter Name Role Phone Unavailable Unavailable Unavailable Surgery Details Not on file Complications Check Surgery Details section. Procedure Estimated Blood Loss Check Surgery Details section. Procedure Findings Check Surgery Details section. Procedure Specimens Taken Check Surgery Details section.
--- OUTSIDE RECORDS SUMMARY | 2024-01-01 07:41 | XMS_ITS | Referral Summary ---
Author Name Unknown Organization [facility] Address [address] [place] [address] Care Team Providers Care Agency Operator Name Role Phone Unavailable Primary Care Provider Unavailabl e Source Comments Patient records contain information from all sites at [facility]. For routine questions regarding patient records, call [phone] during business hours, M-F 8:00 AM - 5:00 PM Central Time. Record requests for emergency care only can be directed to [phone] at any time.[facility] Immunizations Name Administration Dates Next Due influenza [...] Name Priority Date/Time Associated Diagnosis Comments PATHOLOGY PARTS INTERPRETER CYTOLOGY Routine 09/19/2009 2:22 PM MILLER SUPERVISOR from Last 3 Months or Most Recently Relevant to Health Maintenance Results * Pathology PARTS INTERPRETER Cytology (09/19/2009 2:22 PM MILLER SUPERVISOR) 09/19/2009 2:22 PM MILLER SUPERVISOR 09/19/2009 2:22 PM MILLER SUPERVISOR Narrative [facility] - 09/19/2009 2:22 PM MILLER SUPERVISOR ??09/19/2009 Cytology Gynecological ?([id number]) ? Requested By: ??Chhaya Campbell M.D. ??[id number] ?DIAGNOSIS: ?? A. ??ThinPrep Pap Test Screen (Cervical/Endocervical HPV >= 30 years old): ?Satisfactory for evaluation. ?Partially obscuring inflammation. ?Negative for intraepithelial lesion or malignancy. ?HPV testing was performed by [employer] Hybrid Capture II and is negative for HPV types 16,18,31,33,35,39,45,51,52,56,58,59 and 68. ?? The HPV assay was performed in the Clinical Virology Laboratory at [facility]. ? Report electronically signed by PAOLA Acuña(ASCP) ?? 09/21/2009 14:41 Interpreted by: DANY Jacob (ASCP) ?? SPECIMEN DESCRIPTION: A. ??ThinPrep Pap Test Screen (Cervical/Endocervical HPV >= 30 years old): ??Received blood tinged specimen in ThinPrep vial. ? Procedure Note 11/12/2017 09/19/2009 Cytology Gynecological ([id number]) Requested By: Chhaya Campbell M.D. [id number] DIAGNOSIS: A. ThinPrep Pap Test Screen (Cervical/Endocervical HPV >= 30 years old): Satisfactory for evaluation. Partially obscuring inflammation. Negative for intraepithelial lesion or malignancy. HPV testing was performed by [employer] Hybrid Capture II and is negative for HPV types 16,18,31,33,35,39,45,51,52,56,58,59 and 68. The HPV assay was performed in the Clinical Virology Laboratory at [facility]. Report electronically signed by PAOLA Acuña(ASCP) 09/21/2009 14:41 Interpreted by: DANY Jacob (ASC) SPECIMEN DESCRIPTION: A. ThinPrep Pap Test Screen (Cervical/Endocervical HPV >= 30 years old): Received blood tinged specimen in ThinPrep vial. Chhaya Campbell M.D. LAB PAP COPATH ORDER [place] [facility] [address] [place] [address], [facility] from Last 3 Months or Most Recently Relevant to Health Maintenance
--- OUTSIDE RECORDS SUMMARY | 2024-01-01 07:41 | XMS_ITS | Clinical Summary ---
Author Name Unknown Organization [facility] Address [place], [place] [address] Care Team Providers Care Radiology Interventional Physician Name Role Phone Chester Reyes MD Primary Care Provider Allergies Active Allergy Reactions Criticality Noted Date Comments Cephalosporins Hives 12/21/2008 Yesterday at [place] - rec'd [facility]. No SOB/respiratory effects Codeine Rash Doxycycline Vomiting [...] Department Care Team Description 10/14/2023 1:00 PM ENDOSCOPIC TECHNICIAN Orders Only [facility] [place] [facility] [address] [place] [address] 2 scans: (2-Ord) ECHO STRESS EXERCISE W CONTRAST W COLOR ([id number]) 10/10/2023 Telephone [facility] [address] [place] [address] Chester Reyes MD Prior Authorization [...] Ksenia A1 A5 Name Cl in Comments:System Synarc matty. Please review and update details. Comments:System Synarc matty. Please review and update details. Last [...] CONTRAST W COLOR Routine 10/14/2023 1:34 PM ENDOSCOPIC TECHNICIAN Other fatigue GYNECOLOGICAL PANEL Timed 12/21/2013 8 :48 PM CDT from Last 3 Months or Most Recently Relevant to Health Maintenance Results * ECHO STRESS EXERCISE W CONTRAST W COLOR (10/14/2023 1:34 PM ENDOSCOPIC TECHNICIAN) EJECTION FRACTION 55 - 60% Anatomical Region Laterality Modality Ultrasound 10/14/2023 1:02 PM ENDOSCOPIC TECHNICIAN Narrative 10/14/2023 2:03 PM ENDOSCOPIC TECHNICIAN STRESS ECHOCARDIOGRAM PATRICIA SANCHEZ ?Accession#: ?? [id number] : ?1975 48 years Study Date: ?? 10/14/2023 1:02:57 PM Gender: F ? BP: ? 127/81 mmHg Height: 170.00 cm ? BSA: ?2.32 m? ? ? Weight: 125.00 kg ? Tech: ? MHR ?Referring MD: CHESTER REYES Site: ? [facility] Reading Location: MOBILE OP Patient [...] % of Max ? 84% Double Product [id number] Echo Findings:This is a negative stress echo [...] [place] [address]. Submaximum stress test with 83.8% of age [...] . This study was interpreted by an [facility] accredited facility. CC: [facility] ([facility]) [facility]. ??Final ?? Procedure Note Cristobal Bennett MD - 10/14/2023 STRESS ECHOCARDIOGRAM PATRICIA SANCHEZ : 1975 48 years Study Date: 10/14/2023 1:02:57 PM Gender: F BP: 127/81 mmHg Height: 170.00 cm BSA: 2.32 m? ? ? Weight: 125.00 kg Tech: [facility] Referring MD: CHESTER REYES Site: [facility] Reading Location: MOBILE OP Patient [...] 169 % of Max 84% Double Product [id number] Echo Findings:This is a negative stress echo test for ischemia. Poststress, normal left ventricular size, normal global systolic function withan estimated EF of 70 to 75%. LV regional wall motion abnormalities arenot present post exercise. EKG:See separate report for EKG interpretation. Exam Protocol:The patient presents with no significant symptoms atbaseline. The patient exercised 5 min 2 sec to stage II according to [facility] stress echo protocol. Test terminated due to shortness of breath.7.0 METS were achieved. The patient achieved a heart rate of 142 bpm whichis 83.8% of maximum predicted heart rate. Maximum systolic blood pressurewas 140 [place] [address]. Submaximum stress testwith 83.8% of age predicted [...] . This study was interpreted by an [facility] accredited facility. CC: [facility] (med records) [facility]. Final Chester Reyes MD ECHO ORD * GYNECOLOGICAL PANEL (12/21/2013 8:48 PM CDT) CYTOLOGY CYTOPATHOLOGY REPORT [facility] Status: Final Status ?[id number] CLINICAL INFORMATION Last Date of LMP ? :12/17/13 Last Pap Date ?:2010 Last Pap Result ?:WNL ABN [place]/Bx Past 5 YRS :None HPV Request ?:HPV [...] COLLECTED:12/21/13 ? ACCESSIONED: ??12/22/13 ?? SIGNED: ??12/27/13 [facility] PAP [place] CODE NIL [facility] 12/21/2013 8:48 PM CDT 12/21/2013 8:47 PM CDT Cami Christopher MD PATHOLOGY/CYTOLOGY [facility] [place] [address]IP [address] [address] [place] [address] from Last 3 Months or Most Recently Relevant to Health Maintenance Advance Directives * Full Code (Latest Code Status on File) Date Activated Date Inactivated Comments 12/21/2008 8:35 PM 12/25/2008 4:48 PM Care Teams Radiology Interventional Physician Relationship Specialty Start Date End Date Chester Reyes MD [address] [place] [address] PCP - General Internal Medicine 11/13/23
--- OUTSIDE RECORDS SUMMARY | 2024-01-01 07:41 | XMS_ITS | Clinical Summary ---
Author Name Unknown Organization [facility] Address [address] [place] [address] Care Team Providers Care Braker Passenger Train Name Role Phone Unavailable Primary Care Provider Unavailabl e Source Comments Patient records contain information from all sites at [facility]. For routine questions regarding patient records, call [phone] during business hours, M-F 8:00 AM - 5:00 PM Central Time. Record requests for emergency care only can be directed to [phone] at any time.[facility] Immunizations Name Administration Dates Next Due [...] Name Priority Date/Time Associated Diagnosis Comments PATHOLOGY CREDIT DEPARTMENT MANAGER CYTOLOGY Routine 09/19/2009 2:22 PM ENVIRONMENTAL EMERGENCIES ASSISTANT from Last 3 Months or Most Recently Relevant to Health Maintenance Results * Pathology CREDIT DEPARTMENT MANAGER Cytology (09/19/2009 2:22 PM ENVIRONMENTAL EMERGENCIES ASSISTANT) 09/19/2009 2:22 PM ENVIRONMENTAL EMERGENCIES ASSISTANT 09/19/2009 2:22 PM ENVIRONMENTAL EMERGENCIES ASSISTANT Narrative [facility] - 09/19/2009 2:22 PM ENVIRONMENTAL EMERGENCIES ASSISTANT ??09/19/2009 Cytology Gynecological ?([id number]) ? Requested By: ??Chhaya Campbell M.D. ??[id number] ?DIAGNOSIS: ?? A. ??ThinPrep Pap Test Screen (Cervical/Endocervical HPV >= 30 years old): ?Satisfactory for evaluation. ?Partially obscuring inflammation. ?Negative for intraepithelial lesion or malignancy. ?HPV testing was performed by [employer] Hybrid Capture II and is negative for HPV types 16,18,31,33,35,39,45,51,52,56,58,59 and 68. ?? The HPV assay was performed in the Clinical Virology Laboratory at [facility]. ? Report electronically signed by PAOLA Acuña(ASCP) ?? 09/21/2009 14:41 Interpreted by: DANY Jacob (ASCP) ?? SPECIMEN DESCRIPTION: A. ??ThinPrep Pap Test Screen (Cervical/Endocervical HPV >= 30 years old): ??Received blood tinged specimen in ThinPrep vial. ? Procedure Note 11/12/2017 09/19/2009 Cytology Gynecological ([id number]) Requested By: Chhaya Campbell M.D. [id number] DIAGNOSIS: A. ThinPrep Pap Test Screen (Cervical/Endocervical HPV >= 30 years old): Satisfactory for evaluation. Partially obscuring inflammation. Negative for intraepithelial lesion or malignancy. HPV testing was performed by [employer] Hybrid Capture II and is negative for HPV types 16,18,31,33,35,39,45,51,52,56,58,59 and 68. The HPV assay was performed in the Clinical Virology Laboratory at [facility]. Report electronically signed by PAOLA Acuña(ASCP) 09/21/2009 14:41 Interpreted by: DANY Jacob (ASCP) SPECIMEN DESCRIPTION: A. ThinPrep Pap Test Screen (Cervical/Endocervical HPV >= 30 years old): Received blood tinged specimen in ThinPrep vial. Chhaya Campbell M.D. LAB PAP COPATH ORDER [place] [address] from Last 3 Months or Most Recently Relevant to Health Maintenance [facility] [place] [address]
--- OUTSIDE RECORDS SUMMARY | 2024-01-01 07:41 | XMS_ITS | Referral Summary ---
Author Name Unknown Organization [facility] Address [address] [place] [address] Care Team Providers Care Laboratory Apparatus Glass Blower Name Role Phone Cami Christopher MD Primary [...] COMPREHENSIVE METABOLIC PANEL STAT 09/10/2010 8:20 PM OPERATIONS SUPERVISOR 2ND SHIFT from Last 3 Months or Most Recently Relevant to Health Maintenance Results * (ABNORMAL) Comprehensive metabolic panel (09/10/2010 8:20 PM OPERATIONS SUPERVISOR 2ND SHIFT) Sodium 137 133 - 144 mmol/L MISYS [...] - 1.3 mg/dL MISYS 09/10/2010 8:20 PM OPERATIONS SUPERVISOR 2ND SHIFT 09/10/2010 8:28 PM OPERATIONS SUPERVISOR 2ND SHIFT Zara Vargas MD LAB - BLOOD ORDERABL ES MISYS from Last 3 Months or Most Recently Relevant to Health Maintenance Care Teams Laboratory Apparatus Glass Blower Relationship Specialty Start Date End Date Cami Christopher MD [facility] [address] [place] [address] PCP - General 11/23/11
== END 2023-12-30 10:39 | disposition home or self-care (01) ==
LOC: NFLDREF 01-01 07:24
PROVIDERS: PCP Internal Medicine; Referring Provider Internal Medicine; Visit Provider Internal Medicine
DX: R30.0 Dysuria (principal); G47.33 Obstructive sleep apnea (adult) (pediatric)
CPT/HCPCS: 87086; 87186

== ENCOUNTER 2024-02-05 11:06 | Outpatient (CLI) | payer OTHER, SELFPAY ==
--- OUTSIDE RECORDS SUMMARY | 2024-02-05 11:09 | XMS_ITS | Continuity of Care Document ---
Author Organization [facility] Address [address] [facility] [address] [place] [address] Phone Care Team Providers Care Line Ordering Clinician Name Role Phone Nandini Campos MD Unavailable [...] D deficiency has been defined by the [place] ofMedicine and an Endocrine Society practice guideline as alevel of serum 25-OH vitamin D less than 20 ng/mL (1,2).The Endocrine Society went on to further define vitamin Dinsufficiency as a level between 21 and 29 ng/mL (2).1. IOM ([place] of Medicine). 2010. Dietary reference intakes for calcium and D. Gutierrez [place]: The National Academies Press.2. Ayden MF, April NC, Yady DESHPANDE, et al. Evaluation, treatment, and prevention of vitamin D deficiency: an Endocrine Society clinical practice guideline. JCEM. 2010; 96(9):5882-30. Panel Description: CBC Final WBC 16:46:00 8.6 K/uL 3.5-10.8 Final Lymphocyte% 16:46:00 34.2 % 15.1-43.0 Final Mid% 16:46:00 8.0 % 1.0-18.0 Final Gran% 16:46:00 57.8 % 45.0-76.0 Final Lymphocyte # [...] mL/min/1 .73 m2 Final If patient is -Syrian multiply result by 1.210 Panel Description: CRP Final CRP 16:46:00 0.75 MG/DL 0.00-0.60 H Final Advance Directives Directive Yes / No Effective Date File Name No Information Encounters Encounter Description Practice Location Reason(s) For Visit Diagnoses Date Provider Providers Copied on Encounter [facility], [address], [place], [address], [place] tel:[phone] No Information 2 Andres Delatorre. [facility] [address], [place], [address], [place]. tel:[phone] Family History Family Member Type Diagnosis Age [...]
== END 2024-02-05 11:07 | disposition home or self-care (01) ==
LOC: NFLDREF 11:07
PROVIDERS: PCP Internal Medicine; Visit Provider Obstetrics & Gynecology
DX: R32 Unspecified urinary incontinence (principal)
CPT/HCPCS: 87086

== ENCOUNTER 2024-03-09 08:05 | Outpatient (CLI) | payer OTHER, SELFPAY ==
--- OUTSIDE RECORDS SUMMARY | 2024-03-10 11:00 | XMS_ITS | Referral Summary ---
Author Organization [facility] Address [address] [place] [address]. [place] [address] Care Team Providers Care Gas Load Dispatcher Name Role Phone Cami Christopher MD Primary Care Provider Alice Blake PA-C Unavailable [phone] Encounters Date Type Department Care Team Description 02/10/2024 Transcribe Orders GENERIC EXTERNAL DATA DEPARTMENT Provider, Generic External Data Urinary tract infection, site not specified (Primary Dx); Urge incontinence; Nocturnal enuresis; Female stress incontinence 02/05/2024 Medical Correspondence [facility] [address] [place] [address] Scan, Non-Provider from Last 3 Months Allergies Active Allergy Reactions Criticality Noted Date [...] 01/24/2022 5:47 AM CDT Plan of Treatment Upcoming Encounters Date Type Department Care Team (Late st Contact Info) Description 05/27/2024 1:00 PM CDT Office Visit [facility] [address] [place] [address] Jessica Sage MD [facility] [address] [place] [address] Alice Blake PA-C [address] [place] [address] Procedures Procedure Name Priority Date/Time Associated Diagnosis Comments LAB RESULT - HIM SCAN 02/05/2024 12:00 AM CDT COMPREHENSIVE METABOLIC PANEL STAT 09/10/2010 8:20 PM LEVEL GLASS VIAL FILLER from Last 3 Months or Most Recently Relevant to Health Maintenance Results * Lab Result - HIM Scan (02/05/2024 12:00 AM CDT) 02/05/2024 Provider Outside NON-BEAKER LAB TE STING * (ABNORMAL) Comprehensive metabolic panel (09/10/2010 8:20 PM LEVEL GLASS VIAL FILLER) Sodium 137 133 - 144 mmol/L MISYS [...] - 1.3 mg/dL MISYS 09/10/2010 8:20 PM LEVEL GLASS VIAL FILLER 09/10/2010 8:28 PM LEVEL GLASS VIAL FILLER Zara Vargas MD LAB - BLOOD ORDERABL ES MISYS from Last 3 Months or Most Recently Relevant to Health Maintenance Care Teams Gas Load Dispatcher Relationship Specialty Start Date End Date Cami Christopher MD [facility] [address] [place] [address] PCP - General 11/23/11 Alice Blake PA-C [address] [address] Physician Eligibility Specialist Urology 02/13/24
--- OUTSIDE RECORDS SUMMARY | 2024-03-10 11:00 | XMS_ITS | Referral Summary ---
Author Organization [facility] Address [address] [place] [address] Care Team Providers Care Patient Monitor Name Role Phone Unavailable Primary Care Provider Unavailabl e Source Comments Patient records contain information from all sites at [facility]. For routine questions regarding patient records, call [phone] during business hours, M-F 8:00 AM - 5:00 PM Central Time. Record requests for emergency care only can be directed to [phone] at any time.[facility] Immunizations Name Administration Dates Next Due [...] Name Priority Date/Time Associated Diagnosis Comments PATHOLOGY TOP CUTTER CYTOLOGY Routine 09/19/2009 2:22 PM BILLING CONTROL CLERK from Last 3 Months or Most Recently Relevant to Health Maintenance Results * Pathology TOP CUTTER Cytology (09/19/2009 2:22 PM BILLING CONTROL CLERK) 09/19/2009 2:22 PM BILLING CONTROL CLERK 09/19/2009 2:22 PM BILLING CONTROL CLERK Narrative [facility] - 09/19/2009 2:22 PM BILLING CONTROL CLERK ??09/19/2009 Cytology Gynecological ?([id number]) ? Requested By: ??Chhaya Campbell M.D. ??[id number] ?DIAGNOSIS: ?? A. ??ThinPrep Pap Test Screen (Cervical/Endocervical HPV >= 30 years old): ?Satisfactory for evaluation. ?Partially obscuring inflammation. ?Negative for intraepithelial lesion or malignancy. ?HPV testing was performed by [employer] Hybrid Capture II and is negative for HPV types 16,18,31,33,35,39,45,51,52,56,58,59 and 68. ?? The HPV assay was performed in the Clinical Virology Laboratory at [facility]. ? Report electronically signed by PAOLA Acuña(ASCP) ?? 09/21/2009 14:41 Interpreted by: DANY Jacob (ASCP) ?? SPECIMEN DESCRIPTION: A. ??ThinPrep Pap Test Screen (Cervical/Endocervical HPV >= 30 years old): ??Received blood tinged specimen in ThinPrep vial. ? Procedure Note 11/12/2017 09/19/2009 Cytology Gynecological ([id number]) Requested By: Chhaya Campbell M.D. [id number] DIAGNOSIS: A. ThinPrep Pap Test Screen (Cervical/Endocervical HPV >= 30 years old): Satisfactory for evaluation. Partially obscuring inflammation. Negative for intraepithelial lesion or malignancy. HPV testing was performed by [employer] Hybrid Capture II and is negative for HPV types 16,18,31,33,35,39,45,51,52,56,58,59 and 68. The HPV assay was performed in the Clinical Virology Laboratory at [facility]. Report electronically signed by PAOLA Acuña(ASCP) 09/21/2009 14:41 Interpreted by: DANY Jacob (ASC) SPECIMEN DESCRIPTION: A. ThinPrep Pap Test Screen (Cervical/Endocervical HPV >= 30 years old): Received blood tinged specimen in ThinPrep vial. Chhaya Campbell M.D. LAB PAP COPATH ORDER [place] [facility] [address] [place] [id number], [facility] from Last 3 Months or Most Recently Relevant to Health Maintenance
--- OUTSIDE RECORDS SUMMARY | 2024-03-10 11:00 | XMS_ITS ---
Author Organization [facility] Address [address] [place] [address] Care Team Providers Care Spool Winder Name Role Phone Unavailable Unavailable Unavailable Surgery Details Not on file Complications Check Surgery Details section. Procedure Estimated Blood Loss Check Surgery Details section. Procedure Findings Check Surgery Details section. Procedure Specimens Taken Check Surgery Details section.
--- OUTSIDE RECORDS SUMMARY | 2024-03-10 11:00 | XMS_ITS | Continuity of Care Document ---
Author Organization [facility] Address [address] [facility] [address] [place] [address] Phone Care Team Providers Care Jewelry Mechanic Name Role Phone Nandini Campos MD Unavailable [...] D deficiency has been defined by the [place] ofMedicine and an Endocrine Society practice guideline as alevel of serum 25-OH vitamin D less than 20 ng/mL (1,2).The Endocrine Society went on to further define vitamin Dinsufficiency as a level between 21 and 29 ng/mL (2).1. IOM ([place] of Medicine). 2010. Dietary reference intakes for calcium and D. Gutierrez [place]: The National Academies Press.2. Ayden MF, April [place], Yady DESHPANDE, et al. Evaluation, treatment, and prevention of vitamin D deficiency: an Endocrine Society clinical practice guideline. JCEM. 2010; 96(0):1217-30. Panel Description: CBC Final WBC 16:46:00 8.6 [...] mL/min/1 .73 m2 Final If patient is -Mozambican multiply result by 1.210 Panel Description: CRP Final CRP 16:46:00 0.75 MG/DL 0.00-0.60 H Final Advance Directives Directive Yes / No Effective Date File Name No Information Encounters Encounter Description Practice Location Reason(s) For Visit Diagnoses Date Provider Providers Copied on Encounter [facility], [address], [place], [address], [place] tel:[phone] No Information 2 Andres Delatorre. [facility] [address], [place], [address], [place]. tel:[phone] Family History Family Member Type Diagnosis Age [...]
--- OUTSIDE RECORDS SUMMARY | 2024-03-10 11:00 | XMS_ITS | Clinical Summary ---
Author Organization [facility] Address [address] [place] [address] Care Team Providers Care Fretted Instruments Inspector Name Role Phone Cami Christopher MD Primary Care Provider Alice Blake PA-C Unavailable Allergies Active Allergy Reactions Criticality Noted Date [...] Date Resolved Date Knee pain 11/05/2012 05/03/2013 Encounters Date Type Department Care Team Description 02/10/2024 Transcribe Orders GENERIC EXTERNAL DATA DEPARTMENT Provider, Generic External Data Urinary tract infection, site not specified (Primary Dx); Urge incontinence; Nocturnal enuresis; Female stress incontinence 02/05/2024 Medical Correspondence [facility] [address] [facility] [place] [address] Scan, Non-Provider from Last 3 Months Social History Tobacco Use Types Packs/Day Years [...] Description 05/27/2024 1:00 PM CDT Office Visit [facility] [address] [place] [address] Jessica Sage MD [facility] [address] [place] [address] Alice Blake PA-C [address] [place] [address] Health Maintenance Due Date Last Done Comments [...] PAP 1994 LIPID 2013 GLUCOSE 09/10/2013 09/10/2010, 03/19, 11/15/2007, Additional history exists ZOSTER IMMUNIZATION (1 of 2) 2023 COVID-19 Vaccine (4 - 2022- season) 2023 07/21/2021, 11/11/2020, 10/25/2020 PHQ-2 (once per calendar year) 2023 INFLUENZA VACCINE (#1) 2024 3, 06/20/2022, 07/07/2021, Additional history exists DTAP/TDAP/TD IMMUNIZATION (4 - Td or Tdap) 03/22/2032 03/22/2022, 04/29/2016, 06/26/2009, Additional history exists HPV IMMUNIZATION Aged [...] COMPREHENSIVE METABOLIC PANEL STAT 09/10/2010 8:20 PM FRAME CATCHER from Last 3 Months or Most Recently Relevant to Health Maintenance Results * Lab Result - HIM Scan (02/05/2024 12:00 AM CDT) 02/05/2024 Provider Outside NON-BEAKER LAB TE STING * (ABNORMAL) Comprehensive metabolic panel (09/10/2010 8:20 PM FRAME CATCHER) Sodium 137 133 - 144 mmol/L MISYS [...] - 1.3 mg/dL MISYS 09/10/2010 8:20 PM FRAME CATCHER 09/10/2010 8:28 PM FRAME CATCHER Zara Vargas MD LAB - BLOOD ORDERABL ES MISYS from Last 3 Months or Most Recently Relevant to Health Maintenance Care Teams Fretted Instruments Inspector Relationship Specialty Start Date End Date Cami Christopher MD [facility] [address] [place] [address] PCP - General 11/23/11 Alice Blake PA-C [address] [address] Physician Microwave Technician Urology 02/13/24
--- OUTSIDE RECORDS SUMMARY | 2024-03-10 11:00 | XMS_ITS | Clinical Summary ---
Author Organization [facility] Address [address] [place] [address] Care Team Providers Care Hotel Associate Name Role Phone Unavailable Primary Care Provider Unavailabl e Source Comments Patient records contain information from all sites at [facility]. For routine questions regarding patient records, call [phone] during business hours, M-F 8:00 AM - 5:00 PM Central Time. Record requests for emergency care only can be directed to [phone] at any time.[facility] Immunizations Name Administration Dates Next Due influenza [...] 11/11/2020, 10/25/2020 Depression Screening (Annual PHQ-2) 08/18/2023 Influenza Vaccine (#1) 2024 3, 06/20/2022, 07/07/2021, Additional history exists DTaP,Tdap,and Td Vaccines (4 - Td or Tdap) 03/22/2032 03/22/2022, 04/29/2016, 06/26/2009 Pneumococcal vaccine (0-64 years) Aged Out No longer eligible based on patient's age to complete this topic Procedures Procedure Name Priority Date/Time Associated Diagnosis Comments PATHOLOGY INFORMATION TECHNOLOGY ARCHITECT CYTOLOGY Routine 09/19/2009 2:22 PM FRUIT II FARMWORKER from Last 3 Months or Most Recently Relevant to Health Maintenance Results * Pathology INFORMATION TECHNOLOGY ARCHITECT Cytology (09/19/2009 2:22 PM FRUIT II FARMWORKER) 09/19/2009 2:22 PM FRUIT II FARMWORKER 09/19/2009 2:22 PM FRUIT II FARMWORKER Narrative [facility] [place] - 09/19/2009 2:22 PM FRUIT II FARMWORKER ??09/19/2009 Cytology Gynecological ?([id number]) ? Requested By: ??Chhaya Campbell M.D. ??[id number] ?DIAGNOSIS: ?? A. ??ThinPrep Pap Test Screen (Cervical/Endocervical HPV >= 30 years old): ?Satisfactory for evaluation. ?Partially obscuring inflammation. ?Negative for intraepithelial lesion or malignancy. ?HPV testing was performed by [employer] and is negative for HPV types 16,18,31,33,35,39,45,51,52,56,58,59 and 68. ?? The HPV assay was performed in the Clinical Virology Laboratory at [facility]. ? Report electronically signed by Michael Hendrix SCT(ASCP) ?? 09/21/2009 14:41 Interpreted by: DANY Jacob (ASCP) ?? SPECIMEN DESCRIPTION: A. ??ThinPrep Pap Test Screen (Cervical/Endocervical HPV >= 30 years old): ??Received blood tinged specimen in ThinPrep vial. ? Procedure Note 11/12/2017 09/19/2009 Cytology Gynecological ([id number]) Requested By: Chhaay Campbell M.D. [id number] DIAGNOSIS: A. ThinPrep Pap Test Screen (Cervical/Endocervical HPV >= 30 years old): Satisfactory for evaluation. Partially obscuring inflammation. Negative for intraepithelial lesion or malignancy. HPV testing was performed by [employer] Hybrid Capture II and is negative for HPV types 16,18,31,33,35,39,45,51,52,56,58,59 and 68. The HPV assay was performed in the Clinical Virology Laboratory at [facility]. Report electronically signed by PAOLA Acuña(ASCP) 09/21/2009 14:41 Interpreted by: Patricia Fontenot, DANY (ASCP) SPECIMEN DESCRIPTION: A. ThinPrep Pap Test Screen (Cervical/Endocervical HPV >= 30 years old): Received blood tinged specimen in ThinPrep vial. Chhaya Campbell M.D. LAB PAP COPATH ORDER [place] [facility] [place] [address] from Last 3 Months or Most Recently Relevant to Health Maintenance
--- OUTSIDE RECORDS SUMMARY | 2024-03-10 11:01 | XMS_ITS | Clinical Summary ---
Author Organization [facility] Address [place], [place] [address] Care Team Providers Care Automatic Pattern Edger Name Role Phone Chester Sharp MD Primary Care Provider Allergies Active Allergy Reactions Criticality Noted Date Comments Cephalosporins Hives 12/21/2008 Yesterday at [facility]. No SOB/respiratory effects Codeine Rash Doxycycline Vomiting 06/15/2007 Erythromycin GI Upset 06/15/2007 Severe stomach cramping H[employer]ens - [employer] Rash 02/21/2023 Penicillins Rash Sulfa (Sulfonamide Antibiotics) Rash Medications Medication Sig Dispensed Refills Start Date End Date Status lamoTRIgine (LAMICTAL) 100 mg tablet TAKE 1 TABLET BY MOUTH EVERY DAY AT NIGHT Active temazepam (RESTORIL) 15 mg capsule TAKE 1 CAPSULE BY MOUTH EVERYDAY AT BEDTIME Active pregabalin 330 mg Tb24 TAKE 1 TABLET BY MOUTH EVERY DAY FOR FIBROMYALGIA MUST ADMINISTER WITH A MEAL/FOOD 12/21/2023 Active calcium polycarbophiL (FiberCon) 625 mg tablet Take 625 mg by mouth once daily. Active Magnesium 200 mg tab Take 200 mg by mouth once daily. Active docusate sodium (COLACE ORAL) Take by mouth. Active Active Problems Problem Noted Date Diagnosed [...] Encounters Date Type Department Care Team Description 01/29/2024 4:11 PM CDT - 01/29/2024 4:48 PM CDT Emergency [facility] [address] [place] [address] Mouna Rich MD Acute ear pain, right (Primary Dx) Discharge Disposition: Home Self Care 01/29/2024 Travel from Last 3 Months Immunizations Name Administration [...] Outcome GA Total Labor Labor/2nd/3rd Weight Sex Type Anes PTL Ksenia A1 A5 Name Clin Comments:System Spire Sens[employer] matty. Please review and update details. Comments:System Spire [employer] matty. Please review and update details. Last Filed Vital Signs Vital Sign Reading Time Taken Comments Blood Pressure 144/70 01/29/2024 4:19 PM CDT Pulse 91 01/29/2024 4:19 PM CDT Temperature 36.6 ??C (97.9 ??F) 01/29/2024 4:19 PM CD T Respiratory Rate 18 01/29/2024 4:19 PM CDT Oxygen Saturation 96% 01/29/2024 4:19 PM CDT Inhaled Oxygen Concentration - - Weight 128.8 kg (284 lb) 01/29/2024 4:19 PM CDT Height 170.2 cm (5' 7) 03/22/2022 1:40 PM CDT Body Mass Index 44.48 03/22/2022 1:40 PM CDT Plan of Treatment [...] (1 of 2) 2023 COVID-19 vaccine series (2022- season) 2023 07/21/2021, 11/11/2020, 10/25/2020 Influenza for age 50-64 04/18/2024 06/13/2008, 09/02 Tetanus booster 03/22/2032 03/22/2022, 04/16/1999 Tdap Completed 03/22/2022 Pneumococcal series for age 6-64 Aged Out No longer eligible based on patient's age to complete this topic Procedures Procedure Name Priority Date/Time Associated Diagnosis Comments GYNECOLOGICAL PANEL Timed 12/21/2013 8 :48 PM CDT from Last 3 Months or Most Recently Relevant to Health Maintenance Results * GYNECOLOGICAL PANEL (12/21/2013 8:48 PM CDT) CYTOLOGY CYTOPATHOLOGY REPORT [employer] [facility] [employer] Status: Final Status ?[id number] CLINICAL INFORMATION Last Date of LMP ? :12/17/13 Last Pap Date ?:2010 Last Pap Result ?:WNL ABN [place]/Bx Past 5 YRS :None HPV Request ?:HPV [...] COLLECTED:12/21/13 ? ACCESSIONED: ??12/22/13 ?? SIGNED: ??12/27/13 [facility] PAP [place] CODE NIL [facility] 12/21/2013 8:48 PM CDT 12/21/2013 8:47 PM CDT Cami Christopher MD PATHOLOGY/CYTOLOGY [facility] INTERNAL ZIP [address] [address] [place] [address] from Last 3 Months or Most Recently Relevant to Health Maintenance Advance Directives * Full Code (Latest Code Status on File) Date Activated Date Inactivated Comments 12/21/2008 8:35 PM 12/25/2008 4:48 PM Care Teams Automatic Pattern Edger Relationship Specialty Start Date End Date Chester Sharp MD [address] [place] [address] PCP - General Internal Medicine 11/13/23
--- OUTSIDE RECORDS SUMMARY | 2024-03-10 11:01 | XMS_ITS | Encounter Summary ---
Author Organization [facility] Address [address] [place] [address] Care Team Providers Care Soft Drink Powder Mixer Name Role Phone Cami Christopher MD Primary Care Provider Alice Blake PA-C Unavailable Encounter Details Date Type Department Care Team (Late Contact Info) Description 01/15/2022 Orders Only [facility] Centralized Scheduling [address] [place] [id number] Gabriel Welsh MD [address] [place], [place] [id number] Encounter for laboratory testing for COVID-19 virus [...] as of this encounter Plan of Treatment Upcoming Encounters Date Type Department Care Team (Late st Contact Info) Description 05/27/2024 1:00 PM CDT Office Visit [facility] Clinic [address] [place] [address] Jessica Sage MD [facility] [address] [place] [address] Alice Blake PA-C [address] [facility] [address] [place] [address] documented as of this encounter Visit Diagnoses Diagnosis Encounter for laboratory testing for COVID-19 virus documented in this encounter Care Teams Soft Drink Powder Mixer Relationship Specialty Start Date End Date Cami Christopher MD [facility] [address] [place] [address] PCP - General 11/23/11 Alice Blake PA-C [address] [facility] [address] [place], [place] [address] Physician Detail Assembler Urology 02/13/24 documented as of this encounter
--- OUTSIDE RECORDS SUMMARY | 2024-03-10 11:01 | XMS_ITS | Encounter Summary ---
Author Organization [facility] Address [address] [place] [address]. [place] [address] Care Team Providers Care Agricultural Labor Camp Manager Name Role Phone Cami Christopher MD Primary Care Provider Encounter Details Date Type Department Care Team (Late st Contact Info) Description 02/05/2024 Medical Correspondence [facility] [address] [place] [address] Scan, Non-Provider Social History Tobacco Use Types Packs/Day Years [...] on file Sexual Orientation Not on file documented as of this encounter Plan of Treatment Upcoming Encounters Date Type Department Care Team (Late st Contact Info) Description 05/27/2024 1:00 PM CDT Office Visit [facility] [address] [place] [address] Jessica Sage MD [facility] [address] [place] [address] Alice Blake PA-C [address] [facility] [address] [place] [address] documented as of this encounter Visit Diagnoses Not on filedocumented in this encounter Care Teams Agricultural Labor Camp Manager Relationship Specialty Start Date End Date Cami Christopher MD [facility] [address] [place] [address] PCP - General 11/23/11 documented as of this encounter
--- OUTSIDE RECORDS SUMMARY | 2024-03-10 11:01 | XMS_ITS | Encounter Summary ---
Author Organization [facility] Address [address] [place] [address] Care Team Providers Care Barrel Leveler Name Role Phone Cami Christopher MD Primary Care Provider + [phone] Reason for Referral * Consultation (Routine) - Pending Review Specialty Diagnoses / Procedures Referred By Contac t Referred To Contact Urology Diagnoses Urinary tract infection, site not specified Urge incontinence Nocturnal enuresis Female stress incontinence Jessica Sage MD [facility] [address] [place] [address] Referral ID Status Reason Start Date Expiration Date V isits Requested Visits Authorized [id number] Pending Review 02/10/2024 02/09/2025 1 1 Question Answer Referral Type: Urology Reason for Referral: Lower Urinary Symptoms Scheduling Instructions: [facility] will call you to coordinate care as prescribed your provider. If you don? t hear from a service center representative within 2 business days, please call . Comments Referred by: Jessica Sage MD [facility] [address] [place] [address] Please be aware that coverage of these services is subject to the terms and limitations of your health insurance plan. Call member services at your health plan with any benefit or coverage questions. [facility] will call you to coordinate care as prescribed your provider. If you don? t hear from a service center representative within 2 business days, please call . Encounter Details Date Type Department Care Team (Late st Contact Info) Description 02/10/2024 Transcribe Orders GENERIC EXTERNAL DATA DEPARTMENT Provider, Generic External Data Urinary tract infection, site not specified (Primary Dx); Urge incontinence; Nocturnal enuresis; Female stress incontinence Social History Tobacco Use Types Packs/Day Years [...] Encounters Date Type Department Care Team (Late Contact Info) Description 05/27/2024 1:00 PM CDT Office Visit [facility] [address] [place] [address] Jessica Sage MD [facility] AND [address] [address] Alice Blake PA-C [address] [address] Scheduled Referrals Name Type Priority Associated Diagnoses Orde r Schedule Adult Urology Aviation Ordnance Officer Referral Referral Routine Urinary tract infection, site not specified Urge incontinence Nocturnal enuresis Female stress incontinence Expected: 02/10/2024 (Approximate), Expires: 02/09/2025 documented as of this encounter Visit Diagnoses Diagnosis Urinary tract infection, site not specified- Primary Urge incontinence Nocturnal enuresis Female stress incontinence documented in this encounter Care Teams Barrel Leveler Relationship Specialty Start Date End Date Cami Christopher MD [facility] [address] [place] [address] PCP - General 11/23/11 documented as of this encounter
== END 2024-03-09 08:06 | disposition home or self-care (01) ==
LOC: NFLDREF 03-10 10:56
PROVIDERS: PCP Internal Medicine; Referring Provider Internal Medicine; Visit Provider Obstetrics & Gynecology
DX: Z00.00 Encounter for general adult medical examination without abnormal findings (principal); E66.9 Obesity, unspecified; Z13.6 Encounter for screening for cardiovascular disorders
CPT/HCPCS: 80061

== ENCOUNTER 2024-07-08 12:42 | Outpatient (CLI) | payer OTHER, SELFPAY ==
--- OUTSIDE RECORDS SUMMARY | 2024-07-08 12:45 | XMS_ITS ---
Author Organization [facility] Address [address] [place] [address] Care Team Providers Care Binder Operator Name Role Phone Unavailable Unavailable Unavailable Surgery Details Not on file Complications Check Surgery Details section. Procedure Estimated Blood Loss Check Surgery Details section. Procedure Findings Check Surgery Details section. Procedure Specimens Taken Check Surgery Details section.
--- OUTSIDE RECORDS SUMMARY | 2024-07-08 12:45 | XMS_ITS | Clinical Summary ---
Author Organization [facility] Address [address] [place] [address] Care Team Providers Care Hack Driver Name Role Phone Unavailable Primary Care Provider Unavailabl e Source Comments Patient records contain information from all sites at [facility]. For routine questions regarding patient records, call [phone] during business hours, M-F 8:00 AM - 5:00 PM Central Time. Record requests for emergency care only can be directed to [phone] at any time.[facility] Immunizations Name Administration Dates Next Due influenza vaccine quad (FLUZ ONE/FLUARIX) (6 months and older)(PF) 06/12/2023 Social History Tobacco Use Types Packs/Day Years Used Date Smoking Tobacco: Never Assessed Nutrition Answer Date Recorded Nutrition: EVOO Fat Source Unknown 06/12 Nutrition: Servings of Fruits/Vegetables per Day Not on file 06/12/2023 Dental Answer Date Recorded Dental: Regular Dentist Unknown 06/12/20 23 Comments Unknown Sex and Gender Information Value Date Recorded Sex Assigned at Not on file Legal Sex Female 11:49 AM ELEVATOR INSTALLER Gender Identity Not on file Sexual Orientation Not on file Plan of Treatment Health Maintenance Due Date Last Done Comments CT Colonography 1973 Cologuard 1973 Colonoscopy 1973 Colorectal Cancer Screening 1973 FIT 1973 Fasting Glucose for Diabetes Screening 1973 HIV Screening 1973 Hepatitis C Screening 1973 Lipid (Cholesterol) Screening 1973 Mammogram 1973 Hepatitis B Vaccines (1 of 3 - 19+ 3-dose series) 1992 Cervical/Vaginal Cancer Screening 09/19/2012 09/19/2009, 06/21/2008 Zoster Vaccines (1 of 2) 2023 Depression Screening (Annual PHQ-2) 08/18/2023 COVID-19 Vaccine ( season) 2024 07/21/2021, 11/11/2020, 10/25/2020 Influenza Vaccine (#1) 2024 3, 06/20/2022, 07/07/2021, Additional history exists DTaP,Tdap,and Td Vaccines (4 - Td or Tdap) 03/22/2032 03/22/2022, 04/29/2016, 06/26/2009 IPV Vaccines Aged Out No longer eligi ble based on patient's age to complete this topic Pneumococcal vaccine (0-64 years) Aged Out No longer eligible based on patient's age to complete this topic Procedures Procedure Name Priority Date/Time Associated Diagnosis Comments PATHOLOGY MENTAL HEALTH PRACTITIONER CYTOLOGY Routine 09/19/2009 2:22 PM ELEVATOR INSTALLER from Last 3 Months or Most Recently Relevant to Health Maintenance Results * Pathology MENTAL HEALTH PRACTITIONER Cytology (09/19/2009 2:22 PM ELEVATOR INSTALLER) 09/19/2009 2:22 PM ELEVATOR INSTALLER 09/19/2009 2:22 PM ELEVATOR INSTALLER Narrative [facility] - 09/19/2009 2:22 PM ELEVATOR INSTALLER 09/19/2009 Cytology Gynecological ([id number]) Requested By: Chhaya Campbell M.D. [id number] DIAGNOSIS: A. ThinPrep Pap Test Screen (Cervical/Endocervical HPV >= 30 years old): Satisfactory for evaluation. Partially obscuring inflammation. Negative for intraepithelial lesion or malignancy. HPV testing was performed by [employer] Hybrid Capture II and is negative for HPV types 16,18,31,33,35,39,45,51,52,56,58,59 and 68. The HPV assay was performed in the Clinical Virology Laboratory at [facility]. Report electronically signed by PAOLA Acuña(ASCP) 09/21/2009 14:41 Interpreted by: DANY Jacob (ASCP) SPECIMEN DESCRIPTION: A. ThinPrep Pap Test Screen (Cervical/Endocervical HPV >= 30 years old): Received blood tinged specimen in ThinPrep vial. Procedure Note 11/12/2017 09/19/2009 Cytology Gynecological ([id number]) Requested By: Chhaya Campbell M.D. [id number] DIAGNOSIS: A. ThinPrep Pap Test Screen (Cervical/Endocervical HPV >= 30 years old): Satisfactory for evaluation. Partially obscuring inflammation. Negative for intraepithelial lesion or malignancy. HPV testing was performed by [employer] Hybrid Capture II and is negative for HPV types 16,18,31,33,35,39,45,51,52,56,58,59 and 68. The HPV assay was performed in the Clinical Virology Laboratory at [facility]. Report electronically signed by PAOLA Acuña(ASCP) 09/21/2009 14:41 Interpreted by: DANY Jacob (ASCP) SPECIMEN DESCRIPTION: A. ThinPrep Pap Test Screen (Cervical/Endocervical HPV >= 30 years old): Received blood tinged specimen in ThinPrep vial. Chhaya Campbell M.D. LAB PAP COPATH ORDERABLES Fi nal Result [facility] [address] from Last 3 Months or Most Recently Relevant to [place] [address] [employer]
--- OUTSIDE RECORDS SUMMARY | 2024-07-08 12:45 | XMS_ITS | Clinical Summary ---
Author Organization [facility] Address [address] [place] [address] Care Team Providers Care Warehouser Name Role Phone Alice Blake PA-C Unavailable Chester Sharp MD Primary Care Provider Alice Blake PA-C [...] 01/19/2022 Trolamine (Triethanolamine) Rash Low 01/19/2022 Medications Pregabalin (LYRICA PO) Take 3,330 mg by mouth daily Active lamoTRIgine (LAMICTAL) 100 MG tablet Take 100 mg by mouth daily Active levomilnacipran (FETZIMA ER) 120 MG 24 hr capsule Take 120 mg by mouth daily Active temazepam (RESTORIL) 15 MG capsule Take 15 mg by mouth nightly as needed for sleep Active oxyCODONE (ROXICODONE) 5 MG tabletIndicatio ns:Status post bilateral breast reduction Take 1-2 tablets (5-10 mg) by mouth every 4 hours as needed for moderate to severe pain 20 tablet 01/24/2022 Active nitroFURantoin macrocrystal-mo nohydrate (MACROBID) 100 MG capsuleIndicati ons:Acute cystitis without hematuria Take 1 capsule (100 mg) by mouth 2 times daily. 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 Recurrent UTI 05/27/2024 Obstructive sleep apnea 05/27/2024 Vaginal atrophy 05/27/2024 Knee pain 10/24/2023 Endometriosis 11/04/2006 Migraine headache 11/04/2006 Fibromyalgia 04/25/2001 Resolved Problems Problem Noted Date Diagnosed Date Resolved Date White classification A2 gest ational diabetes mellitus (GDM) 05/27/2024 05/27/2024 Knee pain 11/05/2012 05/03/2013 Cervicalgia 04/07/2005 05/27/2024 Sprain of neck 04/07/2005 05/27/2024 Encounters Date Type Department Care Team Description 06/21/2024 MyC Medical Advice [facility] [address] [place] [address] Ariana Paiz 05/27/2024 1:00 PM CDT Office Visit [facility] [address] [place] [address] Jessica Sage MD Fergison, Holly Yvonne, PA-C Recurrent UTI (Primary Dx); Acute cystitis without hematuria; Urge incontinence; Female stress incontinence; Allergy to multiple antibiotics 05/27/2024 Travel 05/25/2024 Travel from Last 3 Months Social History Tobacco Use Types Packs/Day Years Used Date Smoking Tobacco: Never Smokeless Tobacco: Never Tobacco Cessation:Counseling Given: Not Answered Alcohol Use Standard Drinks/Week Comments Yes 0 (1 standard drink = 0.6 oz pur e alcohol) rare Adolescent Education Answer Date Record ed Getting School Help Needed Not on file 06/03 Comments No Sex and Gender Information Value Date Recorded Sex Assigned at Not on file Legal Sex Female 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 [employer]INION [employer] WHEEL Gender Identity Not on file Sexual Orientation Not on file Last Filed Vital Signs Vital Sign Reading Time Taken Comments Blood Pressure 124/76 05/27/2024 12:50 PM CDT Pulse 92 01/24/2022 2:12 PM CDT Temperature 36.8 C (98.2 F) 01/24/2022 2:12 PM CDT Respiratory Rate 12 01/24/2022 2:12 PM CDT Oxygen Saturation 97% 01/24/2022 2:12 PM CDT Inhaled Oxygen Concentration - - Weight 122.5 kg (270 lb) 05/27/2024 12:50 PM CDT Height 170.2 cm (5' 7) 05/27/2024 12:50 PM CDT Body Mass Index 42.29 05/27/2024 12:50 PM CDT Plan of Treatment Upcoming Encounters Date Type Department Care Team (Late st Contact Info) Description 09/30/2024 2:30 PM [employer] Office Visit [facility] [address] [place] [address] Alice Blake PA-C [address] [facility] [address] [place], [place] [id number] Health Maintenance Due Date Last Done Comments [...] exists ZOSTER IMMUNIZATION (1 of 2) 2023 PHQ-2 (once per calendar year) 2023 COVID-19 Vaccine ( - season) 2024 07/21/2021, 11/11/2020, 10/25/2020 INFLUENZA VACCINE (#1) 2024 3, 06/20/2022, 07/07/2021, Additional history exists DTAP/TDAP/TD IMMUNIZATION (4 - Td or Tdap) 03/22/2032 03/22/2022, 04/29/2016, 06/26/2009, Additional history exists RSV VACCINE (1 - 1-dose 75+ series) 2048 HPV IMMUNIZATION Aged Out No longer e [...] Procedure Name Priority Date/Time Associated Diagnosis Comments URINE CULTURE Add-On 05/27/2024 12:46 PM CDT Allergy to multiple antibiotics URINALYSIS MACROSCOPIC Routine 12:46 PM CDT Recurrent UTI PA MEASURE POST-VOID RESIDUAL URINE/BLADDER CAPACITY, US NON-IMAGING Routine 05/27/2024 Recurrent UTI COMPREHENSIVE METABOLIC PANEL STAT 09/10/2010 8:20 PM TR[employer] from Last 3 Months or Most Recently Relevant to Health Maintenance Results * (ABNORMAL) UA without Microscopic [[id number]] (05/27/2024 12:46 PM CDT) Color Urine Yellow Colorless, Straw, Light Yellow, Yellow 05/27/2024 12:49 PM CDT [facility] Appearance Urine Clear Clear 05/27/20 12:49 PM CDT [facility] Glucose Urine Negative Negative mg/dL 05/27/2024 12:49 PM CDT [facility] Bilirubin Urine Negative Negative 12:49 PM CDT [facility] Ketones Urine Negative Negative mg/dL 05/27/2024 12:49 PM CDT [facility] Specific Onyx Urine 1.020 1.003 - 1.035 05/27/2024 12:49 PM CDT [facility] Blood Urine Negative Negative 05/27/2024 12:49 PM CDT [facility] pH Urine 7.0 5.0 - 7.0 05/27/2024 12:49 PM CDT [facility] Protein Albumin Urine Negative Negative mg/dL 05/27/2024 12:49 PM CDT [facility] Urobilinogen Urine 0.2 0.2, 1.0 E.U./dL 05/27/2024 12:49 PM CDT [facility] Nitrite Urine Positive(A) Negative 05/27/2024 12:49 PM CDT [facility] Leukocyte Esterase Urine Small(A) Negative 05/27/2024 12:49 PM CDT [facility] Urine MID-STREAM URINE SPECIMEN / Unknown Non-blood Collection / Unknown 05/27/2024 12:46 PM CDT 05/27/2024 12:46 PM CDT Alice Blake PA-C LAB - URINE ORDERABLE S Final Result [facility] [address] [facility] [phone] * (ABNORMAL) Urine Culture Aerobic Bacterial [[id number]] (05/27/2024 12:46 PM CDT) Culture >100,000 CFU/mL Escherichia coli(A) 05/28/2024 11:53 PM CDT [facility] Urine MID-STREAM URINE SPECIMEN / Unknown Non-blood Collection / Unknown 05/27/2024 12:46 PM CDT 05/27/2024 12:46 PM CDT Narrative Organism Antibiotic Method Susceptibility Escherichia coli Ampicillin MARCELA 4 ug/mL: Susceptible Escherichia coli Ampicillin/ Sulbactam MARCELA <=2 ug/mL: Susceptible Escherichia coli Piperacillin/Tazobactam MARCELA <=4 ug/mL: Susceptible Escherichia coli Cefazolin MARCELA <=4 ug/mL: Susceptible Comment:Cefazolin VA C breakpoints are for the treatment of uncomplicated urinary tract infections. For the treatment of systemic infections, please contact the laboratory for additional testing. Escherichia coli Cefoxitin MARCELA <=4 ug/mL: Susceptible Escherichia coli Ceftazidime MARCELA <=1 ug/mL: Susceptible Escherichia coli Ceftriaxone MARCELA <=1 ug/mL: Susceptible Escherichia coli Cefepime MARCELA <=1 ug/mL: Susceptible Escherichia coli Gentamicin MARCELA <=1 ug/mL: Susceptible Escherichia coli Tobramycin MARCELA <=1 ug/mL: Susceptible Escherichia coli Ciprofloxacin MARCELA <=0.25 ug/mL: Susceptible Escherichia coli Levofloxacin MARCELA <=0.12 ug/mL: Susceptible Escherichia coli Nitrofurantoin MARCELA <=16 ug/mL: Susceptible Escherichia coli Trimethoprim/Sulfamethoxazole MARCELA <=1/19 ug/mL: Susceptible Alice Blake PA-C LAB - MICRO GENERAL O RDERABLES Final Result [facility] Inf. Diseases Diag. Lab [address] [facility], [address] [place] [address] * MEASURE POST-VOID RESIDUAL URINE/BLADDER CAPACITY, US NON-IMAGING ([id number]) (05/27/2024) Residual Volume (RV) (External) 74 Alice Blake PA-C PROCEDURES Final Result * (ABNORMAL) Comprehensive metabolic panel (09/10/2010 8:20 PM [employer]) Sodium 137 133 - 144 mmol/L MISYS [...] - 1.3 mg/dL MISYS 09/10/2010 8:20 PM [employer] 09/10/2010 8:28 PM [employer] Zara Vargas MD LAB - BLOOD ORDERABLES Final Res ult MISYS from Last 3 Months or Most Recently Relevant to Health Maintenance Insurance [employer] [facility] Care Teams Warehouser Relationship Specialty Start Date End Date Chester Sharp MD [facility] [address] [place] [address] PCP - General 05/25/24 Alice Blake PATomasC [address] [place] [address] [place] [address] Physician Soft Sugar Supervisor Urology 02/13/24 Alice Blake PA-C [address] [facility] [address] [place] [address] Assigned Surgical Provider 06/09/24
--- OUTSIDE RECORDS SUMMARY | 2024-07-08 12:45 | XMS_ITS | Referral Summary ---
Author Organization [facility] Address [address] [place] [address] Care Team Providers Care Wood Crafter Name Role Phone Unavailable Primary Care Provider Unavailabl e Source Comments Patient records contain information from all sites at [facility]. For routine questions regarding patient records, call [phone] during business hours, M-F 8:00 AM - 5:00 PM Central Time. Record requests for emergency care only can be directed to [phone] at any time.[facility] Immunizations Name Administration Dates Next Due [...] on file Legal Sex Female 11:[address] ABSTRACTOR Gender Identity Not on file Sexual Orientation Not on file Plan of Treatment Not on file Procedures Procedure Name Priority Date/Time Associated Diagnosis Comments PATHOLOGY COLD STORAGE SUPERVISOR CYTOLOGY Routine 09/19/2009 2:[address] ABSTRACTOR from Last 3 Months or Most Recently Relevant to Health Maintenance Results * Pathology COLD STORAGE SUPERVISOR Cytology (09/19/2009 2:[address] ABSTRACTOR) 09/19/2009 2:[address] ABSTRACTOR 09/19/2009 2:[address] ABSTRACTOR Narrative [facility] - 09/19/2009 2:[address] ABSTRACTOR 09/19/2009 Cytology Gynecological ([id number]) Requested By: Chhaya Campbell M.D. [id number] DIAGNOSIS: A. ThinPrep Pap Test Screen (Cervical/Endocervical HPV >= 30 years old): Satisfactory for evaluation. Partially obscuring inflammation. Negative for intraepithelial lesion or malignancy. HPV testing was performed by [employer] Hybrid Capture II and is negative for HPV types 16,18,31,33,35,39,45,51,52,56,58,59 and 68. The HPV assay was performed in the Clinical Virology Laboratory at [facility]. Report electronically signed by PAOLA Acuña(ASCP) 09/21/2009 14:41 Interpreted by: DANY Jacob (ASCP) SPECIMEN DESCRIPTION: A. ThinPrep Pap Test Screen (Cervical/Endocervical HPV >= 30 years old): Received blood tinged specimen in ThinPrep vial. Procedure Note 11/12/2017 09/19/2009 Cytology Gynecological ([id number]) Requested By: Chhaya Campbell M.D. [id number] DIAGNOSIS: A. ThinPrep Pap Test Screen (Cervical/Endocervical HPV >= 30 years old): Satisfactory for evaluation. Partially obscuring inflammation. Negative for intraepithelial lesion or malignancy. HPV testing was performed by [employer] Hybrid Capture II and is negative for HPV types 16,18,31,33,35,39,45,51,52,56,58,59 and 68. The HPV assay was performed in the Clinical Virology Laboratory at [facility]. Report electronically signed by PAOLA Acuña(ASCP) 09/21/2009 14:41 Interpreted by: DANY Jacob (ASC) SPECIMEN DESCRIPTION: A. ThinPrep Pap Test Screen (Cervical/Endocervical HPV >= 30 years old): Received blood tinged specimen in ThinPrep vial. us Chhaya Campbell M.D. LAB PAP COPATH ORDERABLES Fi nal Result [facility] [address] [place], [place] [address] from Last 3 Months or Most Recently Relevant to Health Maintenance Insurance [employer]
--- OUTSIDE RECORDS SUMMARY | 2024-07-08 12:46 | XMS_ITS | Encounter Summary ---
Author Organization [facility] Address [address] [place] [address]. 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 Gender Identity Not on file Sexual Orientation Not on file documented as of this encounter Plan of Treatment Upcoming Encounters Date Type Department Care Team (Late st Contact Info) Description 09/30/2024 2:30 PM PATENT LEATHER SORTER Office Visit [facility] [address] [place] [address] Alice Blake PA-C [address] [facility] [place] [address] [address] documented as of this encounter Visit Diagnoses Not on filedocumented in this encounter Care Teams Certified Court/Medical Interpreter Relationship Specialty Start Date End Date Chester Sharp MD [facility] [address] [place] [address] PCP - General 05/25/24 Alice Blake PA-C [address] [address] Physician Hand Splitter Urology 02/13/24 documented as of this encounter
--- OUTSIDE RECORDS SUMMARY | 2024-07-08 12:46 | XMS_ITS | Encounter Summary ---
Author Organization [facility] Address [facility] [place] [address] Care Team Providers Care Child And Family Counselor Name Role Phone Alice Blake PA-C Unavailable [phone] Chester Sharp MD Primary Care Provider Reason for Referral * Rehab Therapy Physical Therapy (Routine: Next available opening) - Pending Review Specialty Diagnoses / Procedures Referred By Valeria walker Referred To Contact Diagnoses Urge incontinence Female stress incontinence Alice Blake PA-C [address] [address] Phone: tel: fax: Referral ID Status Reason Start Date Expiration Date V isits Requested Visits Authorized [id number] Pending Review 05/27/2024 05/27/2025 1 1 Question Answer Course of Action: Evaluation and Treatment Specialty Services: Pelvic Health Pelvic Health: Incontinence - Urinary Scheduling Instructions: [facility] will call you to coordinate your care as prescribed by your provider. If you don't hear from a sales representative supervisor within 2 business days, please call . Additional Information: mixed incontinence Comments Please be aware that coverage of these services is subject to the terms and limitations of your health insurance plan. Call member services at your health plan with any benefit or coverage questions. [facility] will call you to coordinate your care as prescribed by your provider. If you don't hear from a sales representative supervisor within 2 business days, please call . Reason for Visit * Reason Comments UTI * Consultation (Routine) - Pending Review Specialty Diagnoses / Procedures Referred By Valeria walker Referred To Contact Urology Diagnoses Urinary tract infection, site not specified Urge incontinence Nocturnal enuresis Female stress incontinence Jessica Sage MD [address] [address] Phone: tel: fax: Referral ID Status Reason Start Date Expiration Date V isits Requested Visits Authorized [id number] Pending Review 02/10/2024 02/09/2025 1 1 Encounter Details Date Type Department Care Team (Late st Contact Info) Description 05/27/2024 1:00 PM CDT Office Visit [facility] [address] [place] [address] Jessica Sage MD [address] [address] Alice Blake PA-C [address] [address]89[address] Recurrent UTI (Primary Dx); Acute cystitis without hematuria; Urge incontinence; Female stress incontinence; Allergy to multiple antibiotics Social History Tobacco Use Types Packs/Day Years [...] on file Legal Sex Female 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 It appears you have an infection. Will plan on starting on Macrobid 100 mg twice daily for 7 days. 2. If you have symptoms of a UTI, call for a UA and urine culture. [phone]. 3. Will have you start cranberry tablets. Take 500 mg once daily. 4. Will have you start d-mannose. Start with 500 mg once daily. Can titrate up to 2000 mg daily, astolerated. Aim for the lowest effective dose. 5. Start Vitamin C 1000 mg once daily. 6. Hydrate with water to keep the urine dilute. 7. Will plan on a referral to pelvic floor PT for mixed urinary incontinence. [facility] Call one number to schedule at any of the above locations: or . Your provider has referred you to: Physical Therapy at [facility] or [facility] Indication/Reason for Referral: Women's Health Therapy Orders: Evaluate and Treat Special Programs: None and Women's Health: Pelvic Dysfunction: Pelvic Floor Weakness: and Biofeedback, E-Stim/TENS/TENS Rental if deemed appropriate by therapist,Exercise/HEP and Myofascial Release/Massage (internal) Special Request: Exercise: Home Exercise Program Manual Therapy: Myofascial Release/Massage (internal) Modalities: As Indicated E-Stim/TENS Additional Comments for the Therapist : Core strengthening Please be aware that coverage of these services is subject to the terms and limitations of your health insurance plan. Call member services at your health plan with any benefit or coverage questions. Please bring the following to your appointment: *Your personal calendar for scheduling future appointments *Comfortable clothing 8. Lifestyle and hygiene modifications: wiping front to back, wearing cotton breathable underwear, voiding before and after intercourse to flush the urethra, minimizing baths and opting for showers, and appropriate perineal hygiene. 9. Below is a list of things that can irritate the bladder and should try to remove to see if it improves your symptoms: Caffeinated soft drinks. Coffee. Tea. Chocolate. Tomato-based foods. Acidic juices and fruits. (includes cranberry juice) Alcohol. Carbonated drinks. Aspartame/Nutrasweet (artificial sweeteners) Vitamin C supplements and citrus fruit Spicy food 10. Follow up in 3-4 months to reassess. Contact us in the interim with questions, concerns, or changes in symptomatology. [phone] documented in this encounter Progress Notes * Alice Blake PA-C - 05/27/2024 1:00 PM CDT CC: Recurrent UTIs and urinary incontinence HPI: Ms. Sanchez is a very pleasant 49 year old year old, , female seen in consultation today forrecurrent UTIs. She is not immunosuppressed and does not have diabetes. She has had issues with recurrent urinary tract infections over the last several years. Her first UTI was in the last several years. She denies any history of pyelonephritis or hospitalization due to urinary tract infections. No history of nephrolithiasis. Typical UTI symptoms include urgency and dysuria. She began to have symptoms of a possible urinary tract infection at this morning. Urinalysis today is nitrate positive. She typically feels like she is getting UTIs approximately 6 to 8 weeks. Occasionally they will resolve on their own. It appears that she has had 5 urinary tract infections over the last 12 months. It appears that she had positive urine cultures with her PCP twice, 1 positive at urgent care and was treated empirically twice [facility]. I am not able to see all of her outside cultures, but I can see 1 from December which showedE. coli. Back in 2021, she also had a E. coli urinary tract infection. She was recently started on topical estrogen therapy. She did use this a few times, but stopped secondary to headache. She does note some difficulties with placing this in the vagina. She has also trialed cranberry juice, but this was difficult for her to ingest large quantities of this. She has been trying to increase her water intake. She has decreased her soda intake down to approximately 16 ounces. Patient does have multiple antibiotic allergies listed including hives with cephalosporins; nausea and vomiting with doxycycline and tetracycline; and rash with penicillin and sulfa. She also has erythromycin listed as an allergy. Patient also endorses issues with urinary incontinence. She does have symptoms consistent with urgeand stress incontinence. She denies any pelvic pressure or symptoms of prolapse. She has nocturia typically 0 times, but occasionally once. She previously had nocturia x 1, but this is improved sincestarting on CPAP for her obstructive sleep apnea. On a normal day, she denies any hematuria or dysur ia. She does not always feel like she can empty her bladder completely. She also endorses urgency and frequency of urination. She does not regularly wear pads, but will occasionally have to change her close. She does note that she is most bothered by her urinary incontinence first thing in the morning. She does not restrict fluids prior to bedtime. No constipation. She did see a provider at [facility], which completed a pelvic examination which showed evidence ofstress incontinence and that she was emptying her bladder adequately. No significant prolapse. Theydid discuss consideration of possible urodynamic study. Patient underwent hysterectomy in 2018. She has tried to do Kegels, but she does not feel these arehelping her symptoms. She does note that she is unable to stop her urinary stream when voiding. The following portions of the patient's history were reviewed and updated as appropriate: allergies, current medications, past family history, past medical history, past social history, past surgicalhistory, and problem list. Review of Systems Constitutional: Negative for chills and fever. Gastrointestinal: Negative for constipation, nausea and vomiting. Genitourinary: Positive for dysuria, frequency and urgency. Negative for flank pain and hematuria. Patient Active Problem List Diagnosis Endometriosis Enuresis, nocturnal only Stress incontinence Urge incontinence Fibromyositis Migraine headache Recurrent UTI Obstructive sleep apnea Vaginal atrophy Fibromyalgia Knee pain Past Medical History: Diagnosis Date Depressive disorder post Endometriosis, site unspecified Fibromyalgia Hernia, abdominal Migraine Myalgia and myositis, unspecified White classification A2 gestational diabetes mellitus (GDM) 05/27/2024 Past Surgical History: Procedure Laterality Date APPENDECTOMY CHOLECYSTECTOMY COSMETIC MAMMOPLASTY REDUCTION BILATERAL Bilateral 01/24/2022 Procedure: BILATERAL BREAST REDUCTION AND RIGHT FREE NIPPLE GRAFT (COSMETIC); Surgeon: Haley Ramachandran MD; Location: [facility] OR HEMORRHOIDECTOMY HERNIA REPAIR HYSTERECTOMY KNEE SURGERY LAPAROSCOPY SALPINGO-OOPHORECTOMY BILATERAL SHOULDER SURGERY times 2 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 Family History: Family history of recurrent urinary tract infections in her mother. GENERAL PHYSICAL EXAM: Vitals: BP 124/76 Ht 1.702 m (5' 7) Wt 122.5 kg (270 lb) LMP 11/06/2007 BMI 42.29 kg/m?? Physical Exam Constitutional: Appearance: Normal appearance. HENT: Head: Normocephalic. Nose: Nose normal. Eyes: General: No scleral icterus. Pulmonary: Effort: Pulmonary effort is normal. Abdominal: General: There is no distension. Musculoskeletal: General: Normal range of motion. Cervical back: Normal range of motion. Skin: Findings: No rash. Neurological: General: No focal deficit present. Mental Status: She is alert and oriented to person, place, and time. Psychiatric: Mood and Affect: Mood normal. Behavior: Behavior normal. Urine - Recent Labs Lab Test 05/27/24 1246 COLOR Yellow APPEARANCE Clear URINEGLC Negative URINEBILI Negative URINEKETONE Negative SG 1.020 UBLD Negative URINEPH 7.0 PROTEIN Negative UROBILINOGEN 0.2 NITRITE Positive* LEUKEST Small* TESTING PVR: 74 mL ASSESSMENT: 1. Recurrent UTI 2. Acute cystitis without hematuria 3. Urge incontinence 4. Female stress incontinence 5. Allergy to multiple antibiotics I had the pleasure today of meeting with Ms. Sanchez to discuss her recurrent urinary tract infections and mixed urinary incontinence. The fact that you have urinary tract infections does not imply that there is anything wrong with you or that you are causing them with bad hygiene. We now know that there is strong family history for urinary tract infections due to some tissue markers allow for adherence of bacteria to the bladder lining. In addition we also know that urinary tract infections tendto cluster together. That means that the most likely time to get one is right after you have cleared one. That does not mean that we would use antibiotics in order to reduce your risk. This is called antibiotic prophylaxis, and we now know that it markedly increases the risk of multiple resistant bacteria. This means the next time you get an infection, that infection will be resistant to the antibioticthat you have been using. We will often do an anatomic evaluation for recurrent urinary tract infections which will typicallyinclude CT urogram and cystoscopy (scope with your bladder). If concern for pyelonephritis, we often will do VCUG. We discussed the anatomic evaluation often does not find any cause for urinary tractinfections. We may be able to reduce urinary tract infections, but we are unable to cure them. Patient is emptying her bladder adequately. If we were to consider Hiprex, would need a BMP. We discussed that if we can get her urinary tract infections under better control, there is a possibility that it may improve her urinary incontinence, but it also may not make any difference. She has previously trialed estrogen therapy with side effects. We had discussed possible Estring or compounded topical estrogen in the future. Typical treatments for urge incontinence include avoiding bladder irritants, biofeedback bladder retraining, overactive bladder medications like anticholinergics or beta 3 agonist, posterior tibial nerve stimulation (PTNS), Botox (which would require learning to perform clean intermittent catheteriz ation and place it works too well), implantable device like Axonics or InterStim, or possible urinary diversion. We also briefly discussed stress incontinence treatment options including Kegel exercises/biofeedback bladder retraining/pelvic floor physical therapy, pessary, Poise Impressa/Revive, Estim/Urostym, sling, and bulking agents. PLAN: Will send urine for urine culture. It appears you have an infection. Will plan on starting on Macrobid 100 mg twice daily for 7 days. 2. If you have symptoms of a UTI, call for a UA and urine culture. [phone]. 3. Will have you start cranberry tablets. Take 500 mg once daily. 4. Will have you start d-mannose. Start with 500 mg once daily. Can titrate up to 2000 mg daily, astolerated. Aim for the lowest effective dose. 5. Start Vitamin C 1000 mg once daily. 6. Hydrate with water to keep the urine dilute. 7. Will plan on a referral to pelvic floor PT for mixed urinary incontinence. 8. Lifestyle and hygiene modifications: wiping front to back, wearing cotton breathable underwear, voiding before and after intercourse to flush the urethra, minimizing baths and opting for showers, and appropriate perineal hygiene. 9. Below is a list of things that can irritate the bladder and should try to remove to see if it improves your symptoms: Caffeinated soft drinks. Coffee. Tea. Chocolate. Tomato-based foods. Acidic juices and fruits. (includes cranberry juice) Alcohol. Carbonated drinks. Aspartame/Nutrasweet (artificial sweeteners) Vitamin C supplements and citrus fruit Spicy food 10. Follow up in 3-4 months to reassess. Possible options for evaluation/treatment for Yadira in the future: Probiotics Prebiotics Ellura or TheraCran Gentamicin irrigations Vegan diet D-Mannose ID consult Allergy consult Mycoplasma, Ureaplasma CT Urogram Cysto with first available urologist Hiprex 1000mg BID Vitamin C 1000mg BID Estring or compounded estrogen. Did not tolerate Estrace well. For incontinence: Would consider possible pessary fitting or medication for next choices. Would consider visit with Tricia or Dr. Norton for possible estring in the future. Patient and I both discussed holding off on urodynamic study. Can consider this in the future if we try several therapies and there is lack of improvement. Alice Blake PA-C [facility] [phone] documented in this encounter Nursing Notes * Lilibeth Laws - 05/27/2024 1:00 PM CDT Chief Complaint Patient presents with UTI Pt states she's been getting infections every 6-8 weeks (states 5 confirmed in the last 12 months). Usually get urgency and burning. Pt has tried a vaginal suppository cream for incontinence which gave her a headache so she stopped using. Denies gross hematuria. Hysterectomy in 2018 PVR: 74 mL by bladder scan Lilibeth Laws, Forestry Foreman documented in this encounter Plan of Treatment Upcoming Encounters Date Type Department Care Team (Late st Contact Info) Description 09/30/2024 2:30 PM COLLECTIONS ASSISTANT Office Visit [facility] [address] [place] [address] Alice Blake PA-C [address] [facility] [address] [place] [address] Scheduled Referrals Name Type Priority Associated Diagnoses Orde r Schedule Physical Therapy Floral Merchandiser Referral Referral Routine: Next available opening Urge incontinence Female stress incontinence Expected: 05/27/2024 (Approximate), Expires: 05/27/2025 documented as of this encounter Procedures Procedure Name Priority Date/Time Associated Diagnosis Comments URINALYSIS MACROSCOPIC Routine 05/27/2024 12:46 PM CDT Recurrent UTI URINE CULTURE Add-On 05/27/2024 12:46 PM CDT Allergy to multiple antibiotics MS MEASURE POST-VOID RESIDUAL URINE/BLADDER CAPACITY, US NON-IMAGING Routine 05/27/2024 Recurrent UTI documented in this encounter Results * (ABNORMAL) Urine Culture Aerobic Bacterial [[id number]] (05/27/2024 12:46 PM CDT) Culture >100,000 CFU/mL [...] coli Cefazolin MARCELA <=4 ug/mL: Susceptible Comment:Cefazolin NM C breakpoints are for the treatment of [...] O RDERABLES Final Result [facility] Inf. Diseases Diag. Lab [address] [facility], Room [address] [place], [place] [id number] * (ABNORMAL) UA without Microscopic [[id number]] (05/27/2024 12:46 PM CDT) Color Urine Yellow Colorless, Straw, Light Yellow, Yellow 05/27/2024 12:49 PM CDT [facility] Appearance Urine Clear Clear 05/27/20 24 12:49 PM CDT [facility] Glucose Urine Negative Negative mg/dL 05/27/2024 12:49 PM CDT [facility] Bilirubin Urine Negative Negative 12:49 PM CDT [facility] Ketones Urine Negative Negative mg/dL 05/27/2024 12:49 PM CDT [facility] Specific [place] Urine 1.020 1.003 - 1.035 05/27/2024 12:49 [...] 12:46 PM CDT 05/27/2024 12:46 PM CDT us Alice Blake PA-C LAB - URINE ORDERABLE S Final Result [facility] [address] [facility]. [address] [place] [address], [facility] [phone] * MEASURE POST-VOID RESIDUAL URINE/BLADDER CAPACITY, US NON-IMAGING ([id number]) (05/27/2024) Residual Volume (RV) (External) 74 us Alice Blake PA-C PROCEDURES Final Result documented in this encounter Visit Diagnoses Diagnosis Recurrent UTI- Primary Urinary tract infection, site not specified Acute cystitis without hematuria Acute cystitis Urge incontinence Female stress incontinence Allergy to multiple antibiotics Other drug allergy documented in this encounter Care Teams Child And Family Counselor Relationship Specialty Start Date End Date Chester Sharp MD [facility] [address] [place] [address] PCP - General 05/25/24 Alice Blake PA-C [address] [facility] [address] [place] [address] Physician Retail Sales Advisor Urology 02/13/24 documented as of this encounter
--- OUTSIDE RECORDS SUMMARY | 2024-07-08 12:46 | XMS_ITS | Clinical Summary ---
Author Organization [facility] Address [place], [place] [address] Care Team Providers Care Darkroom Worker Name Role Phone Chester Sharp MD Primary Care Provider Allergies Active Allergy Reactions Criticality Noted Date Comments Cephalosporins Hives 12/21/2008 Yesterday at [facility]. No SOB/respiratory effects Codeine Rash Doxycycline [...] 04/20/20 15 Supervision of normal 12/22/2008 04/20/2015 Immunizations Name Administration Dates Next Due Influenza, [...] PTL Ksenia A1 A5 Name Clin Comments:System [facility]. Please review and update details. Comments:System [facility]. Please review and update details. Last Filed Vital Signs Vital Sign Reading Time Taken Comments Blood Pressure 144/70 01/29/2024 4:19 PM CDT Pulse 91 01/29/2024 4:19 PM CDT Temperature 36.6 C (97.9 F) 01/29/2024 4:19 PM CDT Respiratory Rate 18 01/29/2024 4:19 PM CDT [...] (1 of 2) 2023 COVID-19 vaccine series (2023- season) 2024 07/21/2021, 11/11/2020, 10/25/2020 Influenza for age 50-64 [...] (12/21/2013 8:48 PM CDT) CYTOLOGY CYTOPATHOLOGY REPORT [facility] Status: Final Status [id number] CLINICAL INFORMATION Last Date of LMP :12/17/13 Last Pap Date :2010 Last Pap Result :WNL ABN Gilbert/Bx Past 5 YRS :None HPV Request :HPV and PAP. See Separate Report. SPECIMEN SOURCE :Cervical/vaginal ThinPrep Vial, screening SPECIMEN ADEQUACY :Satisfactory for evaluation Endocervical component present. INTERPRETATION/RES ULT Negative for intraepithelial lesion or malignancy (NIL) Cytology 1st Screener :bhargavi Signed by :bhargavi This specimen was screened by the FDA approved ThinPrep Imaging System and manually reviewed. NOTE: The Pap test is a screening technique, not a diagnostic procedure. It is used primarily to screen for squamous cancers and precursor lesions. Published studies have shown that it is subject to both false negative and false positive results. The pap test should not be used as the sole means to diagnose or exclude pre-malignant and malignant lesions. COLLECTED:12/21/13 ACCESSIONED: 12/22/13 SIGNED: 12/27/13 [facility] PAP BETH[place]DA CODE NIL [facility] 12/21/2013 8:48 PM CDT 12/21/2013 8:47 PM CDT Cami Christopher MD PATHOLOGY/CYTOLOGY [facility] INTERNAL ZIP [address] [place] [id number] from Last 3 Months or Most Recently Relevant to Health Maintenance Advance Directives * Full Code (Latest Code Status on File) Date Activated Date Inactivated Comments 12/21/2008 8:35 PM 12/25/2008 4:48 PM Care Teams Darkroom Worker Relationship Specialty Start Date End Date Chester Sharp MD [address] [place] [address] PCP - General Internal Medicine 11/13/23
--- OUTSIDE RECORDS SUMMARY | 2024-07-08 12:46 | XMS_ITS | Encounter Summary ---
Author Organization [facility] Address [address] [place] [address]. 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 Gender Identity Not on file Sexual Orientation Not on file documented as of this encounter Plan of Treatment Upcoming Encounters Date Type Department Care Team (Late st Contact Info) Description 09/30/2024 2:30 PM BLADE GRADER OPERATOR Office Visit [facility] [place] [address] [facility] [address] [place] [address] Alice Blake PA-C [address] [place] [address] documented as of this encounter Visit Diagnoses Not on filedocumented in this encounter Care Teams Interventional Physician Relationship Specialty Start Date End Date Chester Sharp MD [facility] [address] [place] [address] PCP - General 05/25/24 Alice Blake PA-C [address] [facility] [address] [place] [address] Physician Barrel Painter Urology 02/13/24 Alice Blake PA-C [address] [facility] [address] [place] [address] Assigned Surgical Provider 06/09/24 documented as of this encounter
--- OUTSIDE RECORDS SUMMARY | 2024-07-08 12:46 | XMS_ITS | Encounter Summary ---
Author Organization [place] Address [address] [place] [address]. [place] [address] Care Team Providers Care Test Carrier Name Role Phone Alice Blake PA-C Unavailable [phone] Chester Sharp MD Primary Care Provider Encounter Details Date Type Department Care Team (Latest Contact Info) Description 05/27/2024 Travel Social History Tobacco Use Types Packs/Day [...] on file Legal Sex Female 4:22 AM ECONOMICS CONSULTANT Gender Identity Not on file Sexual Orientation Not on file documented as of this encounter Plan of Treatment Upcoming Encounters Date Type Department Care Team (Late st Contact Info) Description 09/30/2024 2:30 PM ECONOMICS CONSULTANT Office Visit [facility] [address] [place] [address] Alice Blake PA-C [address] [facility] [address] [address] documented as of this encounter Visit Diagnoses Not on filedocumented in this encounter Care Teams Test Carrier Relationship Specialty Start Date End Date Chester Sharp MD [facility] [address] [place] [address] PCP - General 05/25/24 Alice Blake PA-C [address] [address] Physician Six Pack Loader Operator Urology 02/13/24 documented as of this encounter
--- OUTSIDE RECORDS SUMMARY | 2024-07-08 12:46 | XMS_ITS | Referral Summary ---
Author Organization [place] Address [address] [place] [address]. [place] [address] Care Team Providers Care Wildlife Ecology Professor Name Role Phone Alice Blake PA-C Unavailable Chester Sharp MD Primary Care Provider Alice Blake PA-C Unavailable Encounters Date Type Department Care Team Description 06/21/2024 MyC Medical Advice [facility] [address] [place] [address] Ariana Paiz 05/27/2024 Travel 05/27/2024 1:00 PM CDT Office Visit [facility] [place] [address] [facility] [address] [place] [address] Jessica Sage MD Fergison, Holly Yvonne, PA-C Recurrent UTI (Primary Dx); Acute cystitis without hematuria; Urge incontinence; Female stress incontinence; Allergy to multiple antibiotics 05/25/2024 Travel from Last 3 Months Allergies Active Allergy [...] 04/07/2005 05/27/2024 Sprain of neck 04/07/2005 05/27/2024 Social History Tobacco Use Types Packs/Day Years [...] on file Legal 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 Gender Identity Not on file Sexual Orientation [...] st Contact Info) Description 09/30/2024 2:30 PM SAND MILL OPERATOR FACING SAND Office Visit [facility] [address] [place] [address] Alice Blake PA-C [address] [facility] [address] [place], [place] [id number] Procedures Procedure Name Priority Date/Time Associated Diagnosis Comments URINE CULTURE Add-On 05/27/2024 12:46 PM CDT Allergy to multiple antibiotics URINALYSIS MACROSCOPIC Routine 12:46 PM CDT Recurrent UTI AR MEASURE POST-VOID RESIDUAL URINE/BLADDER CAPACITY, US NON-IMAGING Routine 05/27/2024 Recurrent UTI COMPREHENSIVE METABOLIC PANEL STAT 09/10/2010 8:20 PM SAND MILL OPERATOR FACING SAND from Last 3 Months or Most Recently Relevant to Health Maintenance Results * (ABNORMAL) UA without Microscopic [[id number]] (05/27/2024 12:46 PM CDT) Color Urine Yellow [...] 12:49 PM CDT [facility] Specific [place] Urine 1.020 1.003 - 1.035 05/27/2024 12:49 [...] LAB - URINE ORDERABLE S Final Result Performing Organization Address City/State/[facility] Co de Phone Number [facility] [address] [facility]. [address] [phone] * (ABNORMAL) Urine Culture Aerobic Bacterial [[id number]] (05/27/2024 12:46 PM CDT) Culture >100,000 CFU/mL [...] coli Cefazolin MARCELA <=4 ug/mL: Susceptible Comment:Cefazolin PA C breakpoints are for the treatment of uncomplicated urinary tract infections. For the treatment of systemic infections, please contact the laboratory for additional testing. Escherichia coli Cefoxitin MACRELA <=4 ug/mL: Susceptible Escherichia coli Ceftazidime MARCELA [...] O RDERABLES Final Result [facility] Inf. Diseases Diag. Lab [address] [facility], [address] [address] * MEASURE POST-VOID RESIDUAL URINE/BLADDER CAPACITY, US NON-IMAGING ([id number]) (05/27/2024) Residual Volume (RV) (External) 74 Alice Blake PA-C PROCEDURES Final Result * (ABNORMAL) Comprehensive metabolic panel (09/10/2010 8:20 PM SAND MILL OPERATOR FACING SAND) Sodium 137 133 - 144 mmol/L MISYS [...] - 1.3 mg/dL MISYS 09/10/2010 8:20 PM SAND MILL OPERATOR FACING SAND 09/10/2010 8:28 PM SAND MILL OPERATOR FACING SAND Zara Vargas MD LAB - BLOOD ORDERABLES Final Res ult MISYS from Last 3 Months or Most Recently Relevant to Health Maintenance Insurance [facility] [employer] TechnologiesSAN JU[facility] REG[facility] MEDICAL CENTERO[facility] [employer] [facility] ADMINISTRATORS [facility] CLAIM Care Teams Wildlife Ecology Professor Relationship Specialty Start Date End Date Chester Sharp MD [facility] [address] [place] [address] PCP - General 05/25/24 Alice Blake PA-C [address] [facility] [address] [place] [address] Physician Automotive Technician Instructor Urology 02/13/24 Alice Blake PA-C [address] [facility] [address] [place], [place] [id number] Assigned Surgical Provider 06/09/24
--- OUTSIDE RECORDS SUMMARY | 2024-07-08 12:46 | XMS_ITS | Encounter Summary ---
Author Organization [place] Address [address] [place] [address] Care Team Providers Care Boot Maker Name Role Phone Cami Christopher MD Primary Care Provider [phone] Alice Blake PA-C Unavailable Chester Sharp MD Primary Care Provider Alice Blake PA-C Unavailable Encounter Details Date Type Department Care Team (Late st Contact Info) Description 01/15/2022 Orders Only [facility] Centralized Scheduling [address] [place] [address] Gabriel Welsh MD [address] [place], [place] [id number] Encounter for laboratory testing for COVID-19 virus Social History Tobacco Use Types Packs/Day Years Used Date Smoking Tobacco: Never Alcohol Use Standard Drinks/Week Comments No 0 (1 standard drink = 0.6 oz pur e alcohol) Comments No Sex and Gender Information Value Date Recorded Sex Assigned at Not on file 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 Gender Identity Not on file Sexual Orientation [...] st Contact Info) Description 09/30/2024 2:30 PM PHLEBOTOMY TECHNICIAN Office Visit [facility] [place] [address] [facility] [address] [place] [address] Alice Blake PA-C [address] [place] [address] documented as of this encounter Visit Diagnoses Diagnosis Encounter for laboratory testing for COVID-19 virus documented in this encounter Care Teams Boot Maker Relationship Specialty Start Date End Date Cami Christopher MD [facility] [address] [place] [address] PCP - General 11/23/11 05/24/24 Chester Sharp MD [facility] [address] [place] [address] PCP - General 05/25/24 Alice Blake PA-C [address] [address] Physician Computer Engineer Urology 02/13/24 Alice Blake PA-C [address] [place] [address] Assigned Surgical Provider 06/09/24 documented as of this encounter
--- NOTE | 2024-07-08 13:00 | CRLHL7_ITS ---
For Patients: As a result of the Century Cures Act, medical imaging exams and procedure reports are released immediately into your electronic medical record. You may view this report before your referring provider. If you have questions, please contact your health care provider. BILATERAL SCREENING MAMMOGRAM WITH COMPUTER-AIDED DETECTION AND TOMOSYNTHESIS TECHNIQUE: CC and MLO views were obtained. These mammographic images have been obtained using full-field digital technique. These mammographic images were interpreted with the benefit of computer-aided detection. Breast tomosynthesis was used in this interpretation. COMPARISON FILM: 02/01/21, 01/27/20, 10/03/14. FINDINGS: There are scattered areas of fibroglandular density. IMPRESSION: There is no radiographic evidence for malignancy. ASSESSMENT: BI-RADS Category 1: Negative RECOMMENDATION: Routine screening mammogram in 1 year. A lay language report of this examination will be provided to the patient. ANTHONY MARTINEZ M.D. Diagnostic Radiologist [email or web address] Transcribed: 2:[address]/Dictated by: Anthony Martinez MD @ 07/09/2024 9:00:00 AM (Electronically Signed)
== END 2024-07-08 12:43 | disposition home or self-care (01) ==
LOC: MAMMO 12:43
PROVIDERS: PCP Internal Medicine; Visit Provider Obstetrics & Gynecology
DX: Z12.31 Encounter for screening mammogram for malignant neoplasm of breast (principal)
CPT/HCPCS: 77063; 77067

== ENCOUNTER 2024-09-30 14:16 | Outpatient (CLI) | payer OTHER, SELFPAY | END 2024-09-30 14:17 | disposition home or self-care (01) | PROVIDERS: PCP Internal Medicine; Visit Provider Internal Medicine | DX: E66.9 Obesity, unspecified (principal); F32.A Depression, unspecified; M79.7 Fibromyalgia | CPT/HCPCS: 80053; 80061; 84443 ==